=== PATIENT | male | born 1965 | race Caucasian/White ===

== ENCOUNTER 2019-01-16 10:42 | Inpatient (IN) | payer SELFPAY ==
[2019-01-16 10:51] LABS: Absolute Monocytes 0.6 K/uL (0.1-1.3); Absolute Neutrophil 4.4 K/uL (1.8-8.0); Basophils % 0.7 % (0-1.3); Eosinophils % 1.3 % (0-4.4); Hematocrit 44.1 % (39.6-49.0); Lymphocytes % 28.1 % (15.3-44.8); MPV 7.2 fL (7.6-11.3); Monocytes % 7.8 % (3.3-12.3); RBC Red Blood Cell Count 4.99 M/uL (4.33-5.43)
[2019-01-16 10:57] LABS: Protime INR 0.87
[2019-01-16] MEDS ORDERED: NA CHLORIDE 0.9% 500 ML ONE (11:02)
[2019-01-16 11:04] LABS: Potassium 4.1 mmol/L (3.5-5.1)
--- NOTE | 2019-01-16 11:07 | RAD REPORT ---
EXAM DESCRIPTION: CT - Ct Stroke Brain Wo Cont - 01/16/2019 10:56 am CLINICAL HISTORY: Aphasia COMPARISON: CT head September 2011 TECHNIQUE: Axial 5 millimeter thick images of the head were obtained without IV contrast. All CT scans are performed using dose optimization technique as appropriate and may include automated exposure control or mA/KV adjustment according to patient size. FINDINGS: No intracranial hemorrhage, mass, or cerebral edema. No acute cortical based infarction id entified. No cortical edema or sulcal effacement. No significant atrophy or chronic ischemic changes seen. There is some minimal cerebral white matter chronic ischemia suspected. Ventricles are in propo rtion to any volume loss. Rogers matter-white matter differentiation is preserved. No globe or orbital content abnormality seen. Visualized portions of the mastoid air cells, paranasal sinuses, and orbits are unremarkable. Findings telephoned to the referring physician 11:05 a.m. IMPRESSION: No CT evidence of acute intracranial process. MR imaging could be performed if there are ongoing concerns for acute CVA.
[2019-01-16 11:19] LABS: Creatine Phosphokinase 79 U/L (39-308); Troponin (Emerg Dept Use Only) < 0.02 ng/mL (0.0-0.045)
[2019-01-16] MEDS ORDERED: MAGNESIUM SULFATE 1 gm IVPB 1 GM/100 ML BAG IV ONE (11:23)
[2019-01-16] MEDS ORDERED: LORazepam 2 MG/ML VIAL ONE ×2 (11:23→12:14)
--- NOTE | 2019-01-16 11:42 | RAD REPORT ---
EXAM DESCRIPTION: RAD - Chest Single View - 01/16/2019 11:36 am CLINICAL HISTORY: discretion Chest pain. COMPARISON: Chest Single View dated 11/12/2017; Chest Pa And Lat (2 Views) dated 03/24/2016; Chest Sing le View dated 03/24/2016; CHEST SINGLE VIEW dated 11/07/2014 FINDINGS: Portable technique limits examination quality. The lungs are grossly clear. The heart is normal in size. No displaced fractures. IMPRESSION: No acute intrathoracic process suspected.
[2019-01-16] MEDS ORDERED: Calcium Gluconate 9.3 mEq (=2gm)/NS 100 mL IVPB IV ONE ×2 (11:45)
--- NOTE | 2019-01-16 12:52 | ER ---
Nurse's Notes [facility] Name: Tj Pearce Age: 53 yrs Sex: Male : 1965 Arrival Date: 01/16/2019 Time: 10:43 Bed 4 Private MD: Diagnosis: Aphasia;Hypocalcemia;Hypomagnesemia;Dehydration;Alcohol dependence with withdrawal, unspecified Presentation: 01/16 10:50 Presenting complaint: EMS states: CP x4 DAYS, STUTTERING AND POSTURING "EPISODES" SINCE bp 0430. Transition of care: patient was not received from another setting of care. No acute neurological deficit is noted. The patients blood glucose was checked before arriving to the hospital and was found to be normal. Onset of symptoms was January 16, 2019 at 04:30. Risk Assessment: Do you want to hurt yourself or someone else? Patient reports no desire to harm self or others. Initial Sepsis Screen: Does the patient meet any 2 criteria? HR > 90 bpm. Does the patient have a suspected source of infection? No. Patient's initial sepsis screen is negative. Care prior to arrival: IV initiated. 18 GA, in the left forearm, Glucose check: 153. 10:50 Method Of Arrival: EMS: [facility] bp 10:50 Acuity: SONDRA 1 bp Triage Assessment: 10:53 The onset of the patients symptoms was more than six hours ago. The onset of the bp patients symptoms was January 16, 2019 at 04:30. General: Appears distressed, comfortable, Behavior is cooperative, agitated, anxious. Pain: Complains of pain in chest Pain began 2-3 days ago. EENT: No deficits noted. Neuro: Level of Consciousness is awake, alert, obeys commands, Oriented to person, place, time, situation, Appropriate for age Street Railway Line Installer are equal bilaterally Moves all extremities. Full function Speech is normal, WITH EPISODES OF STUTTERING. Facial symmetry appears normal, Reports headache. Cardiovascular: Rhythm is sinus tachycardia. Respiratory: Airway is patent Respiratory effort is even, unlabored, Respiratory pattern is regular, symmetrical. GI: No signs and/or symptoms were reported involving the gastrointestinal system. : No signs and/or symptoms were reported regarding the genitourinary system. Derm: No deficits noted. Musculoskeletal: Circulation, motion, and sensation intact. Range of motion: intact in all extremities. Stroke Activation: Symptom onset > 6 hours Physician: Stroke Attending; Name: ; Notified At: ; Arrived At: Physician: Chief Stroke Resident; Name: ; Notified At: ; Arrived At: Physician: Stroke Resident; Name: ; Notified At: ; Arrived At: Physician: ED Attending; Name: ; Notified At: ; Arrived At: Physician: ED Resident; Name: ; Notified At: ; Arrived At: Historical: - Allergies: 10:53 Codeine; bp - Home Meds: 10:53 Lisinopril Oral [Active]; bp - PMHx: 10:53 Hypertension; High Cholesterol; CAD; Myocardial infarction; bp - Immunization history:: Adult Immunizations up to date. - Social history:: Smoking status: unknown. - Family history:: not pertinent. - Ebola Screening: : Patient negative for fever greater than or equal to 101.5 degrees Fahrenheit, and additional compatible Ebola Virus Disease symptoms Patient denies exposure to infectious person Patient denies travel to an Ebola-affected area in the 21 days before illness onset No symptoms or risks identified at this time. - Hospitalizations: : No recent hospitalization is reported. Screenin:51 Abuse screen: Denies threats or abuse. Denies injuries from another. Nutritional bp screening: No deficits noted. Tuberculosis screening: No symptoms or risk factors identified. Fall Risk None identified. Assessment: 10:51 VAN Scoring: Arm Drift: Patients demonstrates NO arm weakness. Patient is VAN Negative. bp The patient has not been NPO before screening. The patient is alert, and able to follow commands. The patient does not exhibit slurred or garbled speech. The patient is not exhibiting difficulty speaking. The patient does not exhibit difficulty understanding words. The patient is able to swallow own secretions with no drooling or need for suction. Patient tolerated one teaspoon of water. No drooling, immediate coughing, gurgling, or clearing of the throat was noted. The patient tolerated 90mL of water. No drooling, immediate coughing, gurgling, or clearing of the throat was noted. The patient passed the bedside swallow screening. Oral medications may be given as ordered. Contact Physician for further diet orders. Provider notified of bedside swallow screening results: Avel Munson MD. T-PA (Activase) Screening: Contraindications: Patient reports onset of signs and symptoms of stroke greater than 6 hours ago:. 10:58 Reassessment: PT RETURNED FROM CT. bp 11:47 Reassessment: Patient and/or family updated on plan of care and expected duration. Pain pc1 level reassessed. Patient is alert, oriented x 3, equal unlabored respirations, skin warm/dry/pink. Patient states symptoms have improved. Neuro: Level of Consciousness is awake, alert, obeys commands, Oriented to person, place, time, situation, Street Railway Line Installer are equal bilaterally Moves all extremities. Full function Speech is normal, Facial symmetry appears normal, Reports headache. 13:00 Reassessment: NO S/S SZ ACTIVITY, SR ON MONITOR, DISPO PENDING. bp 15:00 Reassessment: ADMIT COMPLETED. NO CHANGE IN NEURO STATUS. bp Vital Signs: 10:53 Pulse 110; Resp 17; Temp 99; Pulse Ox 100% ; Weight 82.1 kg; bp 11:06 BP 169 / 107; Pulse 81; Resp 16; Pulse Ox 97% ; bp 11:25 BP 161 / 80; Pulse 73; Resp 14; Pulse Ox 97% ; bp 11:41 BP 162 / 106; Pulse 84; Resp 18; Pulse Ox 97% on R/A; Pain 7/10; pc1 12:30 BP 172 / 99; Pulse 72; Resp 19; Pulse Ox 97% ; bp 14:00 BP 191 / 102; Pulse 76; Resp 19; Pulse Ox 97% ; bp 15:00 BP 179 / 90; Pulse 77; Resp 17; Pulse Ox 98% ; bp NIH Stroke Scale Scores: 10:51 NIHSS Score: 0 bp ED Course: 10:43 Patient arrived in ED. hj 10:47 Avel Munson MD is Attending Physician. rn 10:50 Jose Diaz RN is Primary Nurse. bp 10:51 Patient has correct armband on for positive identification. Placed in gown. Bed in low bp position. Call light in reach. Side rails up X2. 10:51 Maintain EMS IV. Dressing intact. Good blood return noted. Site clean \\T\\ dry. Gauge \\T\\ bp site: 18 GAUGE LEFT AC. Converted IV to saline lock on left antecubital area. 10:51 Inserted saline lock: 18 gauge in right forearm, using aseptic technique. bp 10:52 Triage completed. bp 10:53 Arm band placed on right wrist. bp 10:57 CT Stroke Brain w/o Contrast In Process Unspecified. EDMS 11:11 EKG done, by casting technician. reviewed by Avel Munson MD. at1 11:20 X-ray completed. Portable x-ray completed in exam room. Patient tolerated procedure jb2 well. 11:36 Stroke CXR 1 View In Process Unspecified. EDMS 12:50 Jun Gamez MD is Hospitalizing Provider. rn 15:44 No provider procedures requiring assistance completed. Patient admitted, IV remains in bp place. Administered Medications: 10:50 Drug: NS 0.9% 500 ml Route: IV; Rate: bolus; Site: right forearm; bp 15:07 Follow up: IV Status: Completed infusion bp 11:03 CANCELLED (Duplicate Order): Ativan 0.5 mg IVP once rn 11:10 Drug: Magnesium Sulfate 1 grams Route: IVPB; Infused Over: 1 hrs; Site: right forearm; bp 15:07 Follow up: IV Status: Completed infusion bp 11:10 Drug: Ativan 1 mg Route: IVP; Site: right forearm; bp 11:26 Follow up: Response: Marked relief of symptoms bp 12:00 Drug: Calcium Gluconate 2 grams Route: IVPB; Infused Over: 60 mins; Site: right forearm;bp 12:05 Drug: Ativan 1 mg Route: IVP; Site: left forearm; bp 13:01 Follow up: Response: No adverse reaction bp 13:30 Drug: Banana Bag - (NS 0.9% 1000 ml, foLIC Acid 1 mg, Thiamine 100 mg, Multivitamin 1 bp amp) Route: IV; Rate: calculated rate; Site: left forearm; Point of Care Testing: Blood Glucose: 10:53 Blood Glucose: 122 mg/dL; bp Ranges: Outcome: 12:51 Decision to Hospitalize by Provider. rn 15:57 Admitted to Tele accompanied by jeanne, via wheelchair, room 202, with chart, Report bp called to ARJUN LIND 15:57 Condition: stable 15:57 Instructed on the need for admit. 16:10 Patient left the ED. bp NIH Stroke Scale - NIH Stroke Score Date: 01/16/2019 Time: 10:51 Total Score = 0 1a. Level of Consciousness (LOC) - 0(Alert) 1b. Level of Consciousness (LOC) (Year \\T\\ Age) - 0(Both) 1c. LOC Commands (Open \\T\\ Closes Eyes/Filemaker Developer) - 0(Both) 2. Best Gaze (Lateral Gaze Paresis) - 0(Normal) 3. Visual Field Loss - 0(No visual loss) 4. Facial Palsy - 0(Normal) 5a. Left Arm: Motor (10-second hold) - 0(No drift) 5b. Right Arm: Motor (10-second hold) - 0(No drift) 6a. Left Leg: Motor (5-second hold - always test supine) - 0(No drift) 6b. Right Leg: Motor (5-second hold - always test supine) - 0(No drift) 7. Limb Ataxia (finger/nose \\T\\ heel/resendiz - test with eyes open) - 0(Absent) 8. Sensory Loss (pinprick arms/legs/face) - 0(Normal) 9. Best Language: Aphasia (description/naming/reading) - 0(No aphasia) 10. Dysarthria (speech clarity - read or repeat words) - 0(Normal) 11. Extinction and Inattention (visual/tactile/auditory/spatial/personal) - 0(No abnormality) Initials: bp Signatures: Dispatcher [employer] EDMS Dickson Packer jb2 Avel Munson MD MD rn Sima Rosales, line closer EKG Tat1 David Campos RN RN hj Jose Diaz, DIOGO RN bp Dale Osuna pc1 Corrections: (The following items were deleted from the chart) 11:25 10:51 Maintain EMS IV. Converted IV to saline lock on left antecubital area bp bp 11:25 10:51 Inserted saline lock: 18 gauge in right bp bp
--- NOTE | 2019-01-16 12:52 | EDPHYS ---
Physician Documentation [facility] Name: Tj Pearce Age: 53 yrs Sex: Male : 1965 Arrival Date: 01/16/2019 Time: 10:43 Bed 4 Private MD: ED Physician Avel Munson HPI: 01/16 10:48 This 53 yrs old Male presents to ER via Unassigned with complaints of S/S of rn Possible Stroke. 10:48 Reports headache for 1 week, chest pain for 3 days, and around 0430 noticed having rn short periods of unable to speak followed by spasms of upper extremities, when not having an episode, no focal weakness/numbness. Reports worst symptom is his headache. Denies trauma. Has had multiple MIs in past. Given nitro and aspirin by EMS. . Historical: - Allergies: 10:53 Codeine; bp - Home Meds: 10:53 Lisinopril Oral [Active]; bp - PMHx: 10:53 Hypertension; High Cholesterol; CAD; Myocardial infarction; bp - Immunization history:: Adult Immunizations up to date. - Social history:: Smoking status: unknown. - Family history:: not pertinent. - Ebola Screening: : Patient negative for fever greater than or equal to 101.5 degrees Fahrenheit, and additional compatible Ebola Virus Disease symptoms Patient denies exposure to infectious person Patient denies travel to an Ebola-affected area in the 21 days before illness onset No symptoms or risks identified at this time. - Hospitalizations: : No recent hospitalization is reported. ROS: 10:48 Constitutional: Negative for fever, chills, and weight loss, Eyes: Negative for injury, rn pain, redness, and discharge, Neck: Negative for injury, pain, and swelling, Cardiovascular: + chest pain Respiratory: Negative for shortness of breath, cough, wheezing, and pleuritic chest pain, Abdomen/GI: Negative for abdominal pain, nausea, vomiting, diarrhea, and constipation, MS/Extremity: Negative for injury and deformity, Skin: Negative for injury, rash, and discoloration, Neuro: + headache Exam: 10:48 Constitutional: This is a well developed, well nourished patient who is awake, alert, rn appears frustrated and having episodes of expressive ahpasia and tonic activity of RUE. Head/Face: Normocephalic, atraumatic. Eyes: Pupils equal round and reactive to light, extra-ocular motions intact. Lids and lashes normal. Conjunctiva and sclera are non-icteric and not injected. Cornea within normal limits. Periorbital areas with no swelling, redness, or edema. ENT: dry MM Cardiovascular: Tachycardic, irregular, no murmur Respiratory: Lungs have equal breath sounds bilaterally, clear to auscultation Abdomen/GI: soft, non-tender MS/ Extremity: Pulses equal, no cyanosis. Neurovascular intact. Full, normal range of motion. Equal circumference. Neuro: Awake and alert, GCS 15, oriented to person, place, time, and situation. Cranial nerves II-XII grossly intact. Motor strength 5/5 in all extremities. Sensory grossly intact. Few episodes lasting about 30 seconds of tonic upper extremity activity and aphasia, but outside of episodes, clear speech and moving all 4 extremities. Vital Signs: 10:53 Pulse 110; Resp 17; Temp 99; Pulse Ox 100% ; Weight 82.1 kg; bp 11:06 BP 169 / 107; Pulse 81; Resp 16; Pulse Ox 97% ; bp 11:25 BP 161 / 80; Pulse 73; Resp 14; Pulse Ox 97% ; bp 11:41 BP 162 / 106; Pulse 84; Resp 18; Pulse Ox 97% on R/A; Pain 7/10; pc1 12:30 BP 172 / 99; Pulse 72; Resp 19; Pulse Ox 97% ; bp 14:00 BP 191 / 102; Pulse 76; Resp 19; Pulse Ox 97% ; bp 15:00 BP 179 / 90; Pulse 77; Resp 17; Pulse Ox 98% ; bp NIH Stroke Scale Scores: 10:51 NIHSS Score: 0 bp MDM: 10:47 Patient medically screened. rn 11:03 ED course: CT head no acute findings per radiology. rn 11:03 ED course: Pt states alcoholic, and hasn't been eating much, only ramen noodles, last rn drink last night.. 11:53 ED course: Symptoms have improved, given fluids/ativan/mag/calcium, trop negative, rn likely component of abnormal electrolytes 2/2 alcoholism and relative early ETOH withdrawal. . 12:49 Differential diagnosis: CVA, TIA, metabolic disorder, ETOH withdrawal. Data reviewed: rn vital signs, nurses notes, lab test result(s), EKG, radiologic studies, CT scan, plain films, and as a result, I will admit patient. Counseling: I had a detailed discussion with the patient and/or guardian regarding: the historical points, exam findings, and any diagnostic results supporting the discharge/admit diagnosis, lab results, radiology results, the need for further work-up and treatment in the hospital. Response to treatment: the patient's symptoms have markedly improved after treatment, and as a result, I will discharge patient. 12:49 ED course: Pt back to baseline. Admitted to Dr. Gamez, spoke with her \T\ 1250.. rn 01/16 10:45 Order name: Basic Metabolic Panel; Complete Time: :01/16 10:45 Order name: CBC with Diff; Complete Time: :01/16 10:45 Order name: Protime (+inr); Complete Time: :01/16 10:45 Order name: Ptt, Activated; Complete Time: :01/16 10:48 Order name: Troponin (emerg Dept Use Only); Complete Time: :01/16 10:48 Order name: Magnesium; Complete Time: 01/16 10:45 Order name: CT Stroke Brain w/o Contrast; Complete Time: :01/16 10:45 Order name: Stroke CXR 1 View; Complete Time: :01/16 10:48 Order name: CK; Complete Time: :01/16 10:54 Order name: Lipase; Complete Time: :01/16 11:00 Order name: ETOH Level; Complete Time: 11:01/16 10:45 Order name: EKG; Complete Time: 10:46 01/16 10:45 Order name: Accucheck; Complete Time: 11:01/16 10:45 Order name: Cardiac monitoring; Complete Time: 10:45 01/16 10:45 Order name: EKG - Nurse/Tech; Complete Time: 11:01/16 10:45 Order name: IV Saline Lock; Complete Time: 11:01/16 10:45 Order name: Labs collected and sent; Complete Time: 10:45 01/16 10:45 Order name: NPO; Complete Time: 11:/12 10:45 Order name: O2 Per Protocol; Complete Time: 10:45 01/16 10:45 Order name: O2 Sat Monitoring; Complete Time: 10:45 01/16 10:45 Order name: Stroke Swallow Screen; Complete Time: 11:10 aa5 Administered Medications: 10:50 Drug: NS 0.9% 500 ml Route: IV; Rate: bolus; Site: right forearm; bp 15:07 Follow up: IV Status: Completed infusion bp 11:03 CANCELLED (Duplicate Order): Ativan 0.5 mg IVP once rn 11:10 Drug: Magnesium Sulfate 1 grams Route: IVPB; Infused Over: 1 hrs; Site: right forearm; bp 15:07 Follow up: IV Status: Completed infusion bp 11:10 Drug: Ativan 1 mg Route: IVP; Site: right forearm; bp 11:26 Follow up: Response: Marked relief of symptoms bp 12:00 Drug: Calcium Gluconate 2 grams Route: IVPB; Infused Over: 60 mins; Site: right forearm;bp 12:05 Drug: Ativan 1 mg Route: IVP; Site: left forearm; bp 13:01 Follow up: Response: No adverse reaction bp 13:30 Drug: Banana Bag - (NS 0.9% 1000 ml, foLIC Acid 1 mg, Thiamine 100 mg, Multivitamin 1 bp amp) Route: IV; Rate: calculated rate; Site: left forearm; Point of Care Testing: Blood Glucose: 10:53 Blood Glucose: 122 mg/dL; bp Ranges: Critical Glucose Levels:Adult <50 mg/dl or >400 mg/dl <40 mg/dl or >180 mg/dl Disposition: 01/16/19 12:51 Hospitalization ordered by Jun Gamez for Observation. Preliminary diagnosis are Aphasia, Hypocalcemia, Hypomagnesemia, Dehydration, Alcohol dependence with withdrawal, unspecified. - Bed requested for Telemetry/MedSurg (observation). - Status is Observation. bp - Condition is Stable. - Problem is new. - Symptoms have improved. UTI on Admission? No NIH Stroke Scale - NIH Stroke Score Date: 01/16/2019 Time: 10:51 Total Score = 0 1a. Level of Consciousness (LOC) - 0(Alert) 1b. Level of Consciousness (LOC) (Year \T\ Age) - 0(Both) 1c. LOC Commands (Open \T\ Closes Eyes/Geospatial Applications Developer) - 0(Both) 2. Best Gaze (Lateral Gaze Paresis) - 0(Normal) 3. Visual Field Loss - 0(No visual loss) 4. Facial Palsy - 0(Normal) 5a. Left Arm: Motor (10-second hold) - 0(No drift) 5b. Right Arm: Motor (10-second hold) - 0(No drift) 6a. Left Leg: Motor (5-second hold - always test supine) - 0(No drift) 6b. Right Leg: Motor (5-second hold - always test supine) - 0(No drift) 7. Limb Ataxia (finger/nose \T\ heel/resendiz - test with eyes open) - 0(Absent) 8. Sensory Loss (pinprick arms/legs/face) - 0(Normal) 9. Best Language: Aphasia (description/naming/reading) - 0(No aphasia) 10. Dysarthria (speech clarity - read or repeat words) - 0(Normal) 11. Extinction and Inattention (visual/tactile/auditory/spatial/personal) - 0(No abnormality) Initials: bp Signatures: Dispatcher [employer] EDMS Avel Munson MD MD rn Calderon, Audri, RN RN aa5 Philomena Hester RN RN df Jose Diaz RN RN bp Corrections: (The following items were deleted from the chart) 11:03 10:54 Ativan 0.5 mg IVP once ordered. rn rn 14:55 12:51 Hospitalization Ordered by Jun Gamez MD for Observation. Preliminary df diagnosis is Aphasia; Hypocalcemia; Hypomagnesemia; Dehydration; Alcohol dependence with withdrawal, unspecified. Bed requested for Telemetry/MedSurg (observation). Status is Observation. Condition is Stable. Problem is new. Symptoms have improved. UTI on Admission? No. rn 16:10 14:55 01/16/2019 12:51 Hospitalization Ordered by Jun Gamez MD for bp Observation. Preliminary diagnosis is Aphasia; Hypocalcemia; Hypomagnesemia; Dehydration; Alcohol dependence with withdrawal, unspecified. Bed requested for Telemetry/MedSurg (observation). Status is Observation. Condition is Stable. Problem is new. Symptoms have improved. UTI on Admission? No. df
[2019-01-16] MEDS ORDERED: FOLIC ACID 1 MG, MULTIVITAMINS INJ 10 ML, THIAMINE HCL 100 MG in NA CHLORIDE 0.9% 1,000 ML IV ONE (14:00)
[2019-01-16] MEDS ORDERED: LORazepam 2 MG/ML VIAL IV PRN (16:04)
[2019-01-16] MEDS: NA CHLORIDE 0.9% 1,000 ML IV SCH ×2 (16:04→20:49)
[2019-01-16 17:37] VITALS: BMI 25.1
--- NOTE | 2019-01-16 18:44 | P.HP ---
Certification for Inpatient Patient admitted to: Observation With expected LOS: <2 Midnights Practitioner: I am a practitioner with admitting privileges, knowledge of patient current condition, hospital course, and medical plan of care. Services: Services provided to patient in accordance with Admission requirements found in Title 42 Section 412.3 of the Code of Federal Regulations Patient History Date of Service: 01/16/19 Reason for admission: Aphasia History of Present Illness: This is a 53-year-old male with a history of hypertension, myocardial infarction , 2 stent placements, heavy alcohol usage, heavy smoking, marijuana usage admitted for chest pain that started on the left side at 4:30 a.m. the morning of admission. He describes it as a cramping type of pain but states that this pain felt different from his myocardial infarctions in the past. He denies any radiation, alleviating or exacerbating factors. Stated that resolved in the ER. This pain was associated with a headache, trouble speaking and making decisions. He also endorsed some vision changes, stated that the risks of bleeding out of the light. These symptoms also resolved in the ER. In the ED, his blood pressure was elevated to 170/92. His blood work was unremarkable, physical exam was unremarkable. Chest x-ray was normal and a CT head was negative for any acute abnormalities. In the ER, he received 2 mg of Ativan x2 , Mag sulf, normal saline bolus, calcium gluconate. At the time of my exam, patient was alert oriented x3, in no acute distress and was hemodynamically stable. He was asymptomatic and denied any symptoms that he previously had. Per patient, he is a every day 5 L of wine alcohol drinker for a long time. Last drink was yesterday. He also endorses smoking 1 pack of cigarettes a day for the past 10+ years. He also states that he uses marijuana daily, though his last use was 3 weeks ago. Allergies codeine [Codeine] Allergy (Verified 03/24/16 12:22) Hives/Rash Home Medications: Lisinopril [Prinivil*] 20 mg PO DAILY 01/16/19 - Past Medical/Surgical History Diabetic: No -: HTN -: Prior myocardial infarction -: skin graft to head - Family History Father Notes: unknown Mother -: Lung disease, Cancer - Social History Smoking Status: Current every day smoker Alcohol use: Yes CD- Drugs: Yes Caffeine use: Yes Review of Systems 10-point ROS is otherwise unremarkable Physical Examination - Vital Signs Temperature: 98.1 F Blood Pressure: 178/100 Pulse: 71 Respirations: 16 Pulse Ox (%): 96 - Physical Exam General: Alert, In no apparent distress, Oriented x3 HEENT: Atraumatic, PERRLA, Mucous membr. moist/pink, EOMI, Sclerae nonicteric Neck: Supple, 2+ carotid pulse no bruit, No LAD, Without JVD or thyroid abnormality Respiratory: Clear to auscultation bilaterally, Normal air movement Cardiovascular: Regular rate/rhythm, Normal S1 S2 Gastrointestinal: Normal bowel sounds, No tenderness Musculoskeletal: No tenderness Integumentary: No rashes Neurological: Normal gait, Normal speech, Normal strength at 5/5 x4 extr, Normal tone, Normal affect Lymphatics: No axilla or inguinal lymphadenopathy - Studies Laboratory Data (last 24 hrs) 01/16/19 10:44: Magnesium 2.0 01/16/19 10:44: PT 10.3, INR 0.87, APTT 27.4 01/16/19 10:44: WBC 7.1, Hgb 15.0, Hct 44.1, Plt Count 361 01/16/19 10:44: Sodium 142, Potassium 4.1, BUN 8, Creatinine 1.00, Glucose 143 H Assessment and Plan - Problems (Diagnosis) (1) Hypocalcemia Current Visit: Yes Status: Acute (2) Dehydration Current Visit: Yes Status: Acute (3) Aphasia Current Visit: Yes Status: Acute (4) Nicotine dependence Current Visit: Yes Status: Acute (5) Marijuana user Current Visit: Yes Status: Acute (6) Alcohol abuse Current Visit: No Status: Acute (7) CAD (coronary artery disease) Current Visit: No Status: Acute (8) Chest pain Onset Date: 03/25/16 Current Visit: No Status: Acute (9) Hypomagnesemia Onset Date: 03/25/16 Current Visit: No Status: Acute (10) Stented coronary artery Current Visit: No Status: Acute (11) Hypertension Onset Date: 03/25/16 Current Visit: No Status: Chronic Qualifiers: Hypertension type: essential hypertension Qualified Code(s): I10 - Essential (primary) hypertension - Plan This is a 53-year-old male with: Chest pain Resolved at the time of my exam. Will continue to monitor Aphasia Tet[place] Resolved. CT scan negative for any acute abnormalities. Title diagnosis includes alcohol withdrawal versus TIA versus stroke. If symptoms return or worsen, will continue to get MRI. At this time, patient back to baseline. Will continue to monitor Alcohol dependence with withdrawal Alcohol withdrawal assessments. Ativan as needed Librium Multivitamin daily Counseled on proper alcohol cessation. Does not seem that patient is interested in cessation at this time. Hypocalcemia Hypomagnesemia Dehydration Replete lytes per protocol Monitor via a.m. labs Nicotine dependence Counseled on smoking cessation. Patient not interested in smoking cessation at this time. marijuana user Essential hypertension Will resume home medications as tolerated DVT prophylaxis: Lovenox GI prophylaxis: None Diet: Heart healthy Disposition: Pending symptomatic improvement. Likely discharge next 24-48 hr if remains clinically stable. - Advance Directives Does patient have a Living Will: No Does patient have a Durable POA for Healthcare: No Time Spent Managing Pts Care (In Minutes): 55
[2019-01-16] MEDS: ENOXAPARIN 40 MG/0.4 ML SQ SCH (18:45)
[2019-01-16] MEDS: chlordiazePOXIDE HCl 25 MG CAP PO SCH ×2 (18:45→23:17)
[2019-01-16] MEDS: METOPROLOL TAR 25 MG TAB PO SCH (20:50)
[2019-01-17] MEDS: METOPROLOL TAR 25 MG TAB PO SCH ×2 (05:13→17:01)
[2019-01-17] MEDS: chlordiazePOXIDE HCl 25 MG CAP PO SCH ×3 (05:13→17:00)
[2019-01-17 05:41] LABS: Absolute Lymphocytes (CBC) 1.3 K/uL (0.7-4.9); Absolute Monocytes 0.8 K/uL (0.1-1.3); Absolute Neutrophil 3.7 K/uL (1.8-8.0); Basophils % 0.7 % (0-1.3); Eosinophils % 1.1 % (0-4.4); Hematocrit 42.5 % (39.6-49.0); MPV 7.8 fL (7.6-11.3); Monocytes % 13.1 % (3.3-12.3); RBC Red Blood Cell Count 4.72 M/uL (4.33-5.43)
[2019-01-17 06:04] LABS: Albumin 3.5 g/dL (3.4-5.0); Bilirubin Total 0.7 mg/dL (0.2-1.0); Phosphorus 3.1 mg/dL (2.5-4.9); Potassium 4.1 mmol/L (3.5-5.1); Protein, Total 6.8 g/dL (6.4-8.2)
[2019-01-17] MEDS: ENOXAPARIN 40 MG/0.4 ML SQ SCH (08:58)
[2019-01-17] MEDS: LISINOPRIL 20 MG TAB PO SCH (08:58)
[2019-01-17] MEDS: THIAMINE HCL 100 MG TABLET PO SCH (08:59)
[2019-01-17] MEDS: FOLBIC 1 TAB PO SCH (09:00)
[2019-01-17] MEDS: NA CHLORIDE 0.9% 1,000 ML IV SCH ×2 (12:13→20:48)
[2019-01-17] MEDS: NICOTINE 21 MG/PAT TD SCH (13:49)
[2019-01-17] MEDS: AMLODIPINE 5 MG TAB PO SCH (17:30)
--- NOTE | 2019-01-17 18:39 | P.PN ---
Subjective Date of Service: 01/17/19 Chief Complaint: Aphasia Subjective: Improving Patient seen and examined at bedside. No family at bedside. Chart reviewed and case discussed with nursing staff. Review of Systems 10-point ROS is otherwise unremarkable Physical Examination - Vital Signs Temperature: 98.3 F Blood Pressure: 170/90 Pulse: 94 Respirations: 20 Pulse Ox (%): 96 - Physical Exam General: Alert, In no apparent distress, Oriented x3 HEENT: Atraumatic, PERRLA, EOMI Neck: Supple, JVD not distended Respiratory: Clear to auscultation bilaterally, Normal air movement Cardiovascular: Regular rate/rhythm, Normal S1 S2 Gastrointestinal: Normal bowel sounds, No tenderness Musculoskeletal: No tenderness Integumentary: No rashes Neurological: Normal speech, Normal tone, Normal affect Lymphatics: No axilla or inguinal lymphadenopathy Assessment And Plan - Current Problems (Diagnosis) (1) Hypocalcemia Current Visit: Yes Status: Acute (2) Dehydration Current Visit: Yes Status: Acute (3) Aphasia Current Visit: Yes Status: Acute (4) Nicotine dependence Current Visit: Yes Status: Acute (5) Marijuana user Current Visit: Yes Status: Acute (6) Alcohol abuse Current Visit: No Status: Acute (7) CAD (coronary artery disease) Current Visit: No Status: Acute (8) Chest pain Onset Date: 03/25/16 Current Visit: No Status: Acute (9) Hypomagnesemia Onset Date: 03/25/16 Current Visit: No Status: Acute (10) Stented coronary artery Current Visit: No Status: Acute (11) Hypertension Onset Date: 03/25/16 Current Visit: No Status: Chronic Qualifiers: Hypertension type: essential hypertension Qualified Code(s): I10 - Essential (primary) hypertension - Plan This is a 53-year-old male with: Chest pain Had some episodes of chest pain overnight. Troponins negative x2, EKG without any acute abnormalities. Ordered PPI to see if that would help symptoms. Pain does not seem cardiac-related. Will continue to monitor Aphasia Tetany Resolved. No further episodes while in the hospital. CT scan negative for any acute abnormalities. Title diagnosis includes alcohol withdrawal versus TIA versus stroke. If symptoms return or worsen, will continue to get MRI. At this time, patient back to baseline. Will continue to monitor Alcohol dependence with withdrawal Alcohol withdrawal assessments. Monitor for withdrawal symptoms Ativan as needed Librium Multivitamin daily Counseled on proper alcohol cessation. Does not seem that patient is interested in cessation at this time. Hypocalcemia Hypomagnesemia Dehydration Improving Replete lytes per protocol Monitor via a.m. labs Nicotine dependence Counseled on smoking cessation. Patient not interested in smoking cessation at this time. marijuana user Essential hypertension Blood pressure is elevated. Restarted lisinopril 20 mg. Added metoprolol 25 b.i.d.. Blood pressure still continues to be elevated. Added Norvasc 5, will continue to monitor and make adjustments as needed. DVT prophylaxis: Lovenox GI prophylaxis: None Diet: Heart healthy Disposition: Pending symptomatic improvement. Likely discharge next 24-48 hr if remains clinically stable.
[2019-01-18] MEDS: chlordiazePOXIDE HCl 25 MG CAP PO SCH ×4 (00:09→17:12)
[2019-01-18] MEDS: METOPROLOL TAR 25 MG TAB PO SCH ×2 (05:09→17:12)
[2019-01-18] MEDS: PANTOPRAZOLE 40MG TABLET PO SCH (05:10)
[2019-01-18] MEDS: ENOXAPARIN 40 MG/0.4 ML SQ SCH (09:32)
[2019-01-18] MEDS: FOLBIC 1 TAB PO SCH (09:32)
[2019-01-18] MEDS: LISINOPRIL 20 MG TAB PO SCH (09:33)
[2019-01-18] MEDS: AMLODIPINE 5 MG TAB PO SCH (09:33)
[2019-01-18] MEDS: NICOTINE 21 MG/PAT TD SCH (09:34)
[2019-01-18] MEDS: THIAMINE HCL 100 MG TABLET PO SCH (09:34)
[2019-01-18] MEDS: NA CHLORIDE 0.9% 1,000 ML IV SCH ×2 (09:35→17:13)
--- NOTE | 2019-01-18 10:26 | EKG ---
Test Date: 2019-01-16 Test Time: 10:43:48 Pediatric Rn: TERESE MEASUREMENT RESULTS: Intervals: Rate: 101 OH: 158 QRSD: 78 QT: 336 QTc: 435 [place]: P: 66 OH: 158 QRS: 45 T: 79 INTERPRETIVE STATEMENTS: Sinus tachycardia with premature ventricular complexes Otherwise normal ECG Compared to ECG 11/12/2017 01:42:40 PVC now presentt Myocardial infarct finding no longer present Electronically Signed On 01-16-19 12:37:48 CDT by Oswaldo Anglin
--- NOTE | 2019-01-18 10:30 | EKG ---
Test Date: 2019-01-16 Test Time: 17:44:15 Gut Puller: SANDER MEASUREMENT RESULTS: Intervals: Rate: 97 CO: 144 QRSD: 86 QT: 350 QTc: 444 [place]: P: 62 CO: 144 QRS: 35 T: 67 INTERPRETIVE STATEMENTS: Normal sinus rhythm Normal ECG Compared to ECG 01/16/2019 10:43:48 Sinus tachycardia no longer present Ventricular premature complex(es) no longer present Electronically Signed On 01-17-19 08:09:12 CDT by Oswaldo Anglin
--- NOTE | 2019-01-18 12:26 | ECHO ---
HEIGHT: 5 ft 11 in WEIGHT: 180 lb 0 oz DATE OF STUDY: 01/18/[address]: Jun Gamez MD 2-DIMENSIONAL: YES M.MODE: YES DOPPLER: YES COLOR FLOW: YES TDS: NO PORTABLE: NO DEFINITY: NO BUBBLE STUDY: NO DIAGNOSIS: CHEST PAIN CARDIAC HISTORY: CATHERIZATION: NO SURGERY: NO PROSTHETIC VALVE: NO PACEMAKER: NO MEASUREMENTS (cm) DIASTOLIC (NORMALS) SYSTOLIC (NORMALS) IVSd 1.0 (0.6-1.2) LA Diam (1.9-4.0) LVEF 60-69% LVIDd 4.9 (3.5-5.7) LVIDs 3.3 (2.0-3.5) %FS % LVPWd 1.0 (0.6-1.2) Ao Diam 2.9 (2.0-3.7) 2 DIMENSIONAL ASSESSMENT: RIGHT ATRIUM: NORMAL LEFT ATRIUM: NORMAL RIGHT VENTRICLE: NORMAL LEFT VENTRICLE: NORMAL TRICUSPID VALVE: NORMAL MITRAL VALVE: NORMAL PULMONIC VALVE: NORMAL AORTIC VALVE: NORMAL PERICARDIAL EFFUSION: NONE AORTIC ROOT: NORMAL LEFT VENTRICULAR WALL MOTION: NORMAL. DOPPLER/COLOR FLOW: NORMAL. COMMENTS: NORMAL 2D ECHO WITH DOPPLER. TECHNOLOGIST: HARLEY KIMBROUGH
--- NOTE | 2019-01-18 14:18 | P.PN ---
Subjective Date of Service: 01/18/19 Chief Complaint: Aphasia Subjective: Improving Patient seen and examined at bedside. No family at bedside. Chart reviewed and case discussed with nursing staff. Overnight, patient noted to have tremors. Complained of ROSEN At the time of my exam in am, tremors resolved. ROSEN improved. BP still elevated. Last BP in system noted to be recorded prior to BP medication administration. Chest pain resolved this am. Review of Systems 10-point ROS is otherwise unremarkable Physical Examination - Vital Signs Temperature: 97.2 F Blood Pressure: 172/90 Pulse: 58 Respirations: 18 Pulse Ox (%): 97 - Physical Exam General: Alert, In no apparent distress, Oriented x3 HEENT: Atraumatic, PERRLA, EOMI Neck: Supple, JVD not distended Respiratory: Clear to auscultation bilaterally, Normal air movement Cardiovascular: Regular rate/rhythm, Normal S1 S2 Gastrointestinal: Normal bowel sounds, No tenderness Musculoskeletal: No tenderness Integumentary: No rashes Neurological: Normal speech, Normal tone, Normal affect Lymphatics: No axilla or inguinal lymphadenopathy Assessment And Plan - Current Problems (Diagnosis) (1) Hypocalcemia Current Visit: Yes Status: Resolved (2) Dehydration Current Visit: Yes Status: Resolved (3) Aphasia Current Visit: Yes Status: Resolved (4) Nicotine dependence Current Visit: Yes Status: Chronic Qualifiers: Nicotine product type: cigarettes Substance use status: uncomplicated Qualified Code(s): F17.210 - Nicotine dependence, cigarettes, uncomplicated (5) Marijuana user Current Visit: Yes Status: Chronic (6) Alcohol abuse Current Visit: No Status: Chronic (7) CAD (coronary artery disease) Current Visit: No Status: Acute Qualifiers: Coronary Disease-Associated Artery/Lesion type: [place] artery [place] vs. transplanted heart: ch[place]koot heart Associated angina: without angina Qualified Code(s): I25.10 - Atherosclerotic heart disease of [place] coronary artery without angina pectoris (8) Chest pain Onset Date: 03/25/16 Current Visit: No Status: Acute (9) Hypomagnesemia Onset Date: 03/25/16 Current Visit: No Status: Acute (10) Stented coronary artery Current Visit: No Status: Acute (11) Hypertension Onset Date: 03/25/16 Current Visit: No Status: Chronic Qualifiers: Hypertension type: essential hypertension Qualified Code(s): I10 - Essential (primary) hypertension - Plan This is a 53-year-old male with: Chest pain Had some episodes of chest pain overnight. Troponins negative x2, EKG without any acute abnormalities. Resolved this am. Will continue to monitor Aphasia Tetany Resolved. No further episodes while in the hospital. CT scan negative for any acute abnormalities. Differential diagnosis includes alcohol withdrawal versus TIA versus stroke. If symptoms return or worsen, will proceed to get MRI. At this time, patient back to baseline. Will continue to monitor Alcohol dependence with withdrawal Seems to had some tremors of the hand overnight which resolved by morning. Alcohol withdrawal assessments. Monitor for withdrawal symptoms Ativan as needed Librium scheduled Multivitamin daily Counseled on proper alcohol cessation. Does not seem that patient is interested in cessation at this time. Hypocalcemia Hypomagnesemia Dehydration Improving Replete lytes per protocol Monitor via a.m. labs Nicotine dependence Counseled on smoking cessation. Patient not interested in smoking cessation at this time. marijuana user Essential hypertension Blood pressure is elevated. Restarted lisinopril 20 mg. Added metoprolol 25 b.i.d.. Blood pressure still continues to be elevated. We will increase norvasc to 10 mg daily, will continue to monitor and make adjustments as needed. DVT prophylaxis: Lovenox GI prophylaxis: None Diet: Heart healthy Disposition: Pending symptomatic improvement. Likely discharge next 24-48 hr if remains clinically stable.
[2019-01-18] MEDS ORDERED: AMLODIPINE 5 MG TAB PO ONE (14:20)
--- NOTE | 2019-01-18 14:23 | P.PN ---
Date of Service: 01/18/19 2:10 p.m: I called charge nurse for updated vitals. BP noted to be 184/88. Will go ahead and increase norvasc to 10 mg. Instructed charge nurse to give 1 time 5 mg dosage now (ordered) and start 10 mg daily starting tomorrow am. Continue to monitor blood pressure.
[2019-01-19] MEDS: chlordiazePOXIDE HCl 25 MG CAP PO SCH ×2 (00:13→06:08)
[2019-01-19] MEDS: METOPROLOL TAR 25 MG TAB PO SCH (06:08)
[2019-01-19] MEDS: PANTOPRAZOLE 40MG TABLET PO SCH (06:09)
[2019-01-19] MEDS: NA CHLORIDE 0.9% 1,000 ML IV SCH (06:12)
[2019-01-19] MEDS: ENOXAPARIN 40 MG/0.4 ML SQ SCH (08:53)
[2019-01-19] MEDS: FOLBIC 1 TAB PO SCH (08:54)
[2019-01-19] MEDS: LISINOPRIL 20 MG TAB PO SCH (08:55)
[2019-01-19] MEDS: NICOTINE 21 MG/PAT TD SCH (08:56)
[2019-01-19] MEDS: THIAMINE HCL 100 MG TABLET PO SCH (08:57)
[2019-01-19] MEDS ORDERED: AMLODIPINE 10 MG TAB PO SCH (09:00)
[2019-01-19 12:11] VITALS: BP 136/80; TEMP 97.9
[2019-01-19 12:43] VITALS: O2SAT 97
--- NOTE | 2019-01-19 18:58 | P.DS ---
Admission Date: 01/16/19 Discharge Date: 01/19/19 Disposition: ROUTINE DISCHARGE Discharge Condition: GOOD Reason for Admission: Aphasia - Problems (1) Hypocalcemia Status: Resolved (2) Dehydration Status: Resolved (3) Aphasia Status: Resolved (4) Nicotine dependence Status: Chronic Qualifiers: Nicotine product type: cigarettes Substance use status: uncomplicated Qualified Code(s): F17.210 - Nicotine dependence, cigarettes, uncomplicated (5) Marijuana user Status: Chronic (6) Alcohol abuse Status: Chronic (7) CAD (coronary artery disease) Status: Acute Qualifiers: Coronary Disease-Associated Artery/Lesion type: circle artery [place] vs. transplanted heart: circle heart Associated angina: without angina Qualified Code(s): I25.10 - Atherosclerotic heart disease of circle coronary artery without angina pectoris (8) Chest pain Onset Date: 03/25/16 Status: Acute (9) Hypomagnesemia Onset Date: 03/25/16 Status: Acute (10) Stented coronary artery Status: Acute (11) Hypertension Onset Date: 03/25/16 Status: Chronic Qualifiers: Hypertension type: essential hypertension Qualified Code(s): I10 - Essential (primary) hypertension Brief History of Present Illness: This is a 53-year-old male with a history of hypertension, myocardial infarction , 2 stent placements, heavy alcohol usage, heavy smoking, marijuana usage admitted for chest pain that started on the left side at 4:30 a.m. the morning of admission. He describes it as a cramping type of pain but states that this pain felt different from his myocardial infarctions in the past. He denies any radiation, alleviating or exacerbating factors. Stated that resolved in the ER. This pain was associated with a headache, trouble speaking and making decisions. He also endorsed some vision changes, stated that the risks of bleeding out of the light. These symptoms also resolved in the ER. In the ED, his blood pressure was elevated to 170/92. His blood work was unremarkable, physical exam was unremarkable. Chest x-ray was normal and a CT head was negative for any acute abnormalities. In the ER, he received 2 mg of Ativan x2 , Mag sulf, normal saline bolus, calcium gluconate. At the time of my exam, patient was alert oriented x3, in no acute distress and was hemodynamically stable. He was asymptomatic and denied any symptoms that he previously had. Per patient, he is a every day 5 L of wine alcohol drinker for a long time. Last drink was yesterday. He also endorses smoking 1 pack of cigarettes a day for the past 10+ years. He also states that he uses marijuana daily, though his last use was 3 weeks ago. Hospital Course: Chest pain Overall remained stable. Troponins remained negative x2, EKG without any abnormalities. His chest pain did resolve without any intervention. Aphasia Tetany Resolved. No further episodes while in the hospital. CT scan negative for any acute abnormalities. Differential diagnosis included alcohol withdrawal versus TIA versus stroke. Patient remained at baseline throughout the stay. Alcohol dependence with withdrawal No evidence of withdrawals noted throughout the stay. Ativan as needed ordered though not required throughout the stay. Librium scheduled while in the hospital. Did not discharge patient on Librium as patient stated that he is not interested in alcohol cessation at this time. Hypocalcemia Hypomagnesemia Dehydration Repleted per protocol, resolved Nicotine dependence Counseled on smoking cessation. Patient not interested in smoking cessation at this time. marijuana user Patient not interested in cessation at this time. States that he only does it occasionally anyway. But then did change his mind and said that he does do it daily, though has not done and in over 3 weeks. Essential hypertension Blood pressure is elevated. Restarted lisinopril 20 mg. Added metoprolol 25 b.i.d.. Blood pressure still continued to be elevated. We will increase norvasc to 10 mg daily. Blood pressure seems to be stable on this regimen. Discharged on metoprolol 25 mg b.i.d., lisinopril 20 mg and Norvasc 10 mg daily. Instructed to follow up with the primary care physician in 2-3 days for. further management of blood pressure. Prior to discharge, patient was alert oriented x3, asymptomatic and symptom- free and in no acute distress. He was tolerating a regular diet, is ambulating without any concerns. No evidence of alcohol withdrawal symptoms noted at this time. Hemodynamically stable and blood pressure better controlled. Vital Signs/Physical Exam: Temp Pulse Resp BP Pulse Ox 97.9 F 67 16 136/80 98 01/19/19 12:00 01/19/19 12:00 01/19/19 12:00 01/19/19 12:00 01/19/19 12:00 General: Alert, In no apparent distress, Oriented x3 HEENT: Atraumatic, PERRLA, EOMI Neck: Supple, JVD not distended Respiratory: Clear to auscultation bilaterally, Normal air movement Cardiovascular: Regular rate/rhythm, Normal S1 S2 Gastrointestinal: Normal bowel sounds, No tenderness Musculoskeletal: No tenderness Integumentary: No rashes Neurological: Normal speech, Normal tone, Normal affect Lymphatics: No axilla or inguinal lymphadenopathy Laboratory Data at Discharge: WBC 5.9 K/uL (4.3-10.9) D 01/17/19 05:10 Hgb 14.1 g/dL (13.6-17.9) 01/17/19 05:10 Hct 42.5 % (39.6-49.0) 01/17/19 05:10 Plt Count 216 K/uL (152-406) D 01/17/19 05:10 PT 10.3 SECONDS (9.5-12.5) 01/16/19 10:44 INR 0.87 01/16/19 10:44 APTT 27.4 SECONDS (24.3-36.9) 01/16/19 10:44 Sodium 137 mmol/L (136-145) 01/17/19 05:10 Potassium 4.1 mmol/L (3.5-5.1) 01/17/19 05:10 BUN 13 mg/dL (7-18) 01/17/19 05:10 Creatinine 1.22 mg/dL (0.55-1.3) 01/17/19 05:10 Glucose 133 mg/dL (74-106) H 01/17/19 05:10 Phosphorus 3.1 mg/dL (2.5-4.9) 01/17/19 05:10 Magnesium 2.0 mg/dL (1.8-2.4) 01/16/19 10:44 Total Bilirubin 0.7 mg/dL (0.2-1.0) 01/17/19 05:10 AST 43 U/L (15-37) H 01/17/19 05:10 ALT 44 U/L (12-78) 01/17/19 05:10 Alkaline Phosphatase 111 U/L (45-117) 01/17/19 05:10 Troponin I < 0.02 ng/mL (0.0-0.045) 01/16/19 18:45 Lipase 46 U/L (73-393) L 01/16/19 Unknown Home Medications: Lisinopril [Prinivil*] 20 mg PO DAILY 01/16/19 Amlodipine [Norvasc*] 10 mg PO DAILY #30 tab 01/19/19 Cyanoco/FA/Pyri [Folbic*] 1 tab PO DAILY #30 tab 01/19/19 Metoprolol Tartrate [Lopressor*] 25 mg PO BID 6AM 6PM #60 tab 01/19/19 Pantoprazole [Protonix Tab*] 40 mg PO DAILYAC #30 tab 01/19/19 Thiamine HCl [Vitamin B-1*] 100 mg PO DAILY #30 tablet 01/19/19 New Medications: Amlodipine [Norvasc*] 10 mg PO DAILY #30 tab Cyanoco/FA/Pyri [Folbic*] 1 tab PO DAILY #30 tab Metoprolol Tartrate [Lopressor*] 25 mg PO BID 6AM 6PM #60 tab Pantoprazole [Protonix Tab*] 40 mg PO DAILYAC #30 tab Thiamine HCl [Vitamin B-1*] 100 mg PO DAILY #30 tablet Patient Discharge Instructions: Please follow up with the primary care physician in 2-3 days. Your new prescriptions have been sent to the pharmacy. The include blood pressure medications: Metoprolol and amlodipine. Please return to the emergency room for any worsening symptoms. Diet: AHA Activity: Ad jayro Time spent managing pt's care (in minutes): 55
== END 2019-01-19 14:36 | disposition home or self-care (01) | DRG 313 ==
LOC: ER 10:42 → ERHOLD 13:20 → OBSVTOIN 13:20 → 2ND 16:07
PROVIDERS: ADMIT Family Medicine; ATTEND Family Medicine
DX: R07.9 Chest pain, unspecified (principal); R47.01 Aphasia; F10.230 Alcohol dependence with withdrawal, uncomplicated; E83.51 Hypocalcemia; E86.0 Dehydration; F17.210 Nicotine dependence, cigarettes, uncomplicated; F12.10 Cannabis abuse, uncomplicated; T51.0X1A Toxic effect of ethanol, accidental (unintentional), initial encounter; I25.10 Atherosclerotic heart disease of native coronary artery without angina pectoris; Z95.5 Presence of coronary angioplasty implant and graft; E83.42 Hypomagnesemia; I10 Essential (primary) hypertension
CPT/HCPCS: 36415; 70450; 71045; 80048; 80053; 80320; 82550; 83690; 83735; 84100; 84484; 85025; 85610; 85730; 93005; 93306; 94760; 99291; 99292; J0610; J1650; J3411; J3475; J7030

== ENCOUNTER 2020-07-16 11:12 | Emergency (ER) | payer SELFPAY ==
--- OUTSIDE RECORDS SUMMARY | 2020-07-16 11:16 | XMS REPORT | Continuity of Care Document ---
:1965 Author Organization [facility] t Address [facility] [place] [address] Care Team Providers Name Role Phone Unavailable Unavailable Unavailable Problems This patient has no known problems. Allergies, Adverse Reactions, Alerts This patient has no known allergies or adverse reactions. Medications This patient has no known medications. Procedures This patient has no known procedures. Results This patient has no known results.
[2020-07-16] MEDS ORDERED: ASPIRIN 81 MG CHEWABLE TABLET ONE (12:07)
--- NOTE | 2020-07-16 12:14 | RAD REPORT ---
EXAM DESCRIPTION: Shimon Single View07/16/2020 11:46 am CLINICAL HISTORY: Chest pain COMPARISON: 2019 FINDINGS: The lungs appear clear of acute infiltrate. The heart is normal size IMPRESSION: No acute abnormalities displayed
[2020-07-16 12:33] LABS: Absolute Lymphocytes (CBC) 1.8 K/uL (0.7-4.9); Basophils % 0.4 % (0-1.3); Hematocrit 42.5 % (39.6-49.0); MPV 8.6 fL (7.6-11.3); RBC Red Blood Cell Count 4.56 M/uL (4.33-5.43)
[2020-07-16] MEDS ORDERED: NITROGLYCERIN 0.4 MG/TAB SL ONE (12:39)
[2020-07-16 12:42] LABS: Protime INR 0.82
[2020-07-16] MEDS ORDERED: MEPERIDINE HCL 50 MG/ML ONE (12:43)
[2020-07-16] MEDS ORDERED: ONDANSETRON 4 MG/2 ML VIAL ONE (12:44)
--- NOTE | 2020-07-16 13:08 | RAD REPORT ---
EXAM DESCRIPTION: US - Abdomen Exam Limited - 07/16/2020 1:00 pm CLINICAL HISTORY: R/O GB;Abd pain Right upper quadrant abdominal pain COMPARISON: No comparisons FINDINGS: The gallbladder demonstrates no gallstones. No pericholecystic fluid or gallbladder wall t hickening. The common bile duct is normal measuring 5 mm. The liver demonstrates no findings of intrahepatic biliary dilatation. IMPRESSION: Unremarkable examination.
[2020-07-16 13:16] LABS: ALT/SGPT 27 U/L (12-78); AST/SGOT 13 U/L (15-37); Albumin 4.1 g/dL (3.4-5.0); Alkaline Phosphatase 94 U/L (45-117); BUN Blood Urea Nitrogen 16 mg/dL (7-18); Bilirubin Direct 0.2 mg/dL (0-0.2); Bilirubin Total 0.9 mg/dL (0.2-1.0); Glucose Level 308 mg/dL (74-106); NT PRO-BNP 445 pg/mL (<125); Potassium 4.4 mmol/L (3.5-5.1); Protein, Total 7.7 g/dL (6.4-8.2); Sodium Level 130 mmol/L (136-145); Troponin (Emerg Dept Use Only) < 0.02 ng/mL (0.0-0.045)
[2020-07-16 13:18] LABS: Bicarbonate 11 mmol/L (21-32)
[2020-07-16] MEDS ORDERED: NA CHLORIDE 0.9% 1,000 ML ONE (13:41)
--- NOTE | 2020-07-16 14:32 | ER ---
Nurse's Notes [facility] Name: Tj Pearce Age: 55 yrs Sex: Male : 1965 Arrival Date: 07/16/2020 Time: 11:14 Bed 15 Private MD: Diagnosis: Chest pain, unspecified Presentation: 07/16 11:15 Chief complaint: Patient states: L sided chest pain since Tuesday, constant and steady, ca1 non-radiating, sharp. Reports hx of heart attack and 2 stents. Also reports lower abdominal pain and RUQ pain. Reports SOB and lightheadness with CP. Denies injury to chest. Reports SOB with exertion. Coronavirus screen: Client denies travel out of the [place] in the last 14 days. At this time, the client does not indicate any symptoms associated with coronavirus-19. Ebola Screen: Patient negative for fever greater than or equal to 101.5 degrees Fahrenheit, and additional compatible Ebola Virus Disease symptoms Patient denies exposure to infectious person. Patient denies travel to an Ebola-affected area in the 21 days before illness onset. No symptoms or risks identified at this time. Initial Sepsis Screen: Does the patient meet any 2 criteria? No. Patient's initial sepsis screen is negative. Does the patient have a suspected source of infection? No. Patient's initial sepsis screen is negative. Risk Assessment: Do you want to hurt yourself or someone else? Patient reports no desire to harm self or others. Onset of symptoms was July 16, 2020. 11:15 Method Of Arrival: Wheelchair ca1 11:15 Acuity: SONDRA 3 ca1 Historical: - Allergies: 11:20 Codeine; ca1 - PMHx: 11:20 High Cholesterol; CAD; Hypertension; Myocardial infarction; Diabetes - IDDM; ca1 - PSHx: 11:20 Heart stents; ca1 - Immunization history:: Adult Immunizations up to date. - Social history:: Smoking status: Patient reports the use of cigarette tobacco products, smokes one-half pack cigarettes per day, Patient uses alcohol, on a daily basis. Screenin:14 Abuse screen: Denies threats or abuse. Nutritional screening: No deficits noted. tw2 Tuberculosis screening: No symptoms or risk factors identified. Fall Risk None identified. Assessment: 12:00 General: Appears in no apparent distress. slender, Behavior is calm, cooperative, tw2 appropriate for age. Neuro: Level of Consciousness is awake, alert, obeys commands, Oriented to person, place, time, situation. Cardiovascular: Heart tones S1 S2 Patient's skin is warm and dry. Respiratory: Airway is patent Respiratory effort is even, unlabored, Respiratory pattern is regular, symmetrical, Breath sounds are clear bilaterally. GI: Abdomen is flat, Bowel sounds present X 4 quads. Reports lower abdominal pain, upper abdominal pain. : No signs and/or symptoms were reported regarding the genitourinary system. EENT: No signs and/or symptoms were reported regarding the EENT system. Derm: No signs and/or symptoms reported regarding the dermatologic system. Musculoskeletal: Range of motion: intact in all extremities. 12:30 Reassessment: No changes from previously documented assessment. Patient and/or family tw2 updated on plan of care and expected duration. Pain level reassessed. Patient is alert, oriented x 3, equal unlabored respirations, skin warm/dry/pink. pt c/o abdominal pain, provider notified, medicated as ordered. Patient states symptoms have not improved. 13:14 Pain: Pain began "this past Tuesday". Pain: Pain does not radiate. Cardiovascular: tw2 Reports chest pain. GI: Reports lower abdominal pain, upper abdominal pain. 14:24 Reassessment: Patient appears in no apparent distress at this time. No changes from tw2 previously documented assessment. Patient and/or family updated on plan of care and expected duration. Pain level reassessed. Patient is alert, oriented x 3, equal unlabored respirations, skin warm/dry/pink. provider at bedside at this time. 14:39 Reassessment: Patient appears in no apparent distress at this time. No changes from tw2 previously documented assessment. Patient and/or family updated on plan of care and expected duration. Pain level reassessed. Patient is alert, oriented x 3, equal unlabored respirations, skin warm/dry/pink. Vital Signs: 11:15 BP 130 / 78; Pulse 112; Resp 17 S; Temp 97.4(TE); Pulse Ox 100% on R/A; Weight 72.57 kg ca1 (R); Height 5 ft. 11 in. (180.34 cm) (R); Pain 4/10; 12:30 BP 126 / 73; Pulse 85; Resp 17; Pulse Ox 99% on R/A; tw2 13:12 BP 126 / 70; Pulse 79; Resp 20; Pulse Ox 100% on R/A; Pain 4/10; tw2 14:24 BP 118 / 73; Pulse 77; Resp 17; Pulse Ox 100% on R/A; tw2 11:15 Body Mass Index 22.32 (72.57 kg, 180.34 cm) ca1 13:12 pt states "4 in my stomach and about a 3 in my chest" tw2 ED Course: 11:14 Patient arrived in ED. ag5 11:19 Triage completed. ca1 11:20 Arm band placed on right wrist. ca1 11:22 Adán Arias PA is PHCP. jr8 11:22 Avel Munson MD is Attending Physician. jr8 11:37 Dina Pizano, RN is Primary Nurse. jr10 11:46 XRAY Chest (1 view) In Process Unspecified. EDMS 11:50 Bed in low position. Call light in reach. manager monitoring on. Pulse ox on. NIBP on. tw2 11:52 Primary Nurse role handed off by Dina Pizano RN tw2 11:52 Loly Engle RN is Primary Nurse. tw2 12:06 Missed attempt(s): 20 gauge in right antecubital area. Bleeding controlled, band aid tw2 applied, catheter tip intact. Missed attempt(s): 20 gauge in right forearm. notified DIOGO Arroyo of need for IV at this time.. Bleeding controlled, band aid applied, catheter tip intact. 12:15 Inserted saline lock: 20 gauge in left forearm, using aseptic technique. ,using aseptic tw2 technique. DIOGO Arroyo Blood collected. 13:00 US Abdomen Limited In Process Unspecified. EDMS 13:15 Patient maintains SpO2 saturation greater than 95% on room air. tw2 14:31 Juan Silverman MD is Referral Physician. jr8 14:39 No provider procedures requiring assistance completed. IV discontinued, intact, tw2 bleeding controlled, No redness/swelling at site. Pressure dressing applied. Administered Medications: 11:57 Drug: Aspirin Chewable Tablet 324 mg Route: PO; tw2 12:37 Follow up: Response: No adverse reaction tw2 12:29 Not Given (Physician Discretion): Nitroglycerin 0.4 mg Sublingual once jr8 12:35 Drug: Zofran (Ondansetron) 4 mg Route: IVP; Site: left forearm; tw2 13:13 Follow up: Response: No adverse reaction tw2 12:37 Drug: Demerol 25 mg Route: IVP; Site: left forearm; tw2 13:13 Follow up: Response: No adverse reaction; Pain is decreased; RASS: Alert and Calm (0) tw2 13:32 Drug: NS 0.9% 1000 ml Route: IV; Rate: 1000 ml; Site: left forearm; tw2 14:20 Follow up: Response: No adverse reaction; IV Status: Completed infusion; IV Intake: tw2 1000ml 14:35 Drug: TORadol - Ketorolac 15 mg Route: IVP; Site: left forearm; tw2 14:40 Follow up: Response: No adverse reaction tw2 Intake: 14:20 IV: 1000ml; Total: 1000ml. tw2 Outcome: 14:32 Discharge ordered by . jr8 14:39 Discharged to home ambulatory. tw2 14:39 Condition: stable 14:39 Discharge instructions given to patient, Instructed on discharge instructions, follow up and referral plans. Demonstrated understanding of instructions, follow-up care. 14:40 Patient left the ED. tw2 Signatures: Dispatcher [employer] EDMS Adán Arias PA PA jr8 Loly Engle RN RN tw2 Patricia Patel RN RN ca1 Chasity Aguiar 5 Dina Pizano RN RN jr10 Corrections: (The following items were deleted from the chart) 12:13 12:06 Missed attempt(s): 20 gauge in right forearm. notified DIOGO Arroyo. Bleeding tw2 controlled, band aid applied, catheter tip intact. tw2
--- NOTE | 2020-07-16 14:32 | EDPHYS ---
Physician Documentation [facility] Name: Tj Pearce Age: 55 yrs Sex: Male : 1965 Arrival Date: 07/16/2020 Time: 11:14 Bed 15 Private MD: ED Physician Avel Munson HPI: 07/16 12:02 This 55 yrs old Male presents to ER via Wheelchair with complaints of Chest jr8 Pain. 12:02 The patient or guardian reports chest pain that is located primarily in the substernal jr8 area. Onset: acutely, 5 day(s) ago. 12:06 The pain does not radiate. Associated signs and symptoms: The patient has no apparent jr8 associated signs or symptoms. The chest pain is described as sharp. Duration: The patient or guardian reports a single episode. Modifying factors: The symptoms are alleviated by nothing. the symptoms are aggravated by nothing. Severity of pain: At its worst the pain was moderate in the emergency department the pain is unchanged. The patient has experienced similar episodes in the past, a few times. The patient has not recently seen a physician. Historical: - Allergies: 11:20 Codeine; ca1 - PMHx: 11:20 High Cholesterol; CAD; Hypertension; Myocardial infarction; Diabetes - IDDM; ca1 - PSHx: 11:20 Heart stents; ca1 - Immunization history:: Adult Immunizations up to date. - Social history:: Smoking status: Patient reports the use of cigarette tobacco products, smokes one-half pack cigarettes per day, Patient uses alcohol, on a daily basis. ROS: 12:07 Eyes: Negative for injury, pain, redness, and discharge, ENT: Negative for injury, jr8 pain, and discharge, Neck: Negative for injury, pain, and swelling, Respiratory: Negative for shortness of breath, cough, wheezing, and pleuritic chest pain, Back: Negative for injury and pain, MS/Extremity: Negative for injury and deformity, Skin: Negative for injury, rash, and discoloration, Neuro: Negative for headache, weakness, numbness, tingling, and seizure. 12:07 Cardiovascular: Positive for chest pain, Negative for edema, orthopnea, palpitations, paroxysmal nocturnal dyspnea. 12:07 Abdomen/GI: Positive for abdominal pain, constipation, Negative for nausea, vomiting, and diarrhea, abdominal cramps, abdominal distension. Exam: 12:07 Eyes: Pupils equal round and reactive to light, extra-ocular motions intact. Lids and jr8 lashes normal. Conjunctiva and sclera are non-icteric and not injected. Cornea within normal limits. Periorbital areas with no swelling, redness, or edema. ENT: Nares patent. No nasal discharge, no septal abnormalities noted. Tympanic membranes are normal and external auditory canals are clear. Oropharynx with no redness, swelling, or masses, exudates, or evidence of obstruction, uvula midline. Mucous membranes moist. Neck: Trachea midline, no thyromegaly or masses palpated, and no cervical lymphadenopathy. Supple, full range of motion without nuchal rigidity, or vertebral point tenderness. No Meningismus. Cardiovascular: Regular rate and rhythm with a normal S1 and S2. No gallops, murmurs, or rubs. Normal PMI, no JVD. No pulse deficits. Respiratory: Lungs have equal breath sounds bilaterally, clear to auscultation and percussion. No rales, rhonchi or wheezes noted. No increased work of breathing, no retractions or nasal flaring. Abdomen/GI: Soft, non-tender, with normal bowel sounds. No distension or tympany. No guarding or rebound. No evidence of tenderness throughout. Back: No spinal tenderness. No costovertebral tenderness. Full range of motion. Skin: Warm, dry with normal turgor. Normal color with no rashes, no lesions, and no evidence of cellulitis. MS/ Extremity: Pulses equal, no cyanosis. Neurovascular intact. Full, normal range of motion. Neuro: Awake and alert, GCS 15, oriented to person, place, time, and situation. Cranial nerves II-XII grossly intact. Motor strength 5/5 in all extremities. Sensory grossly intact. Cerebellar exam normal. Normal gait. 12:08 ECG was reviewed by the Attending Physician. 8 Vital Signs: 11:15 BP 130 / 78; Pulse 112; Resp 17 S; Temp 97.4(TE); Pulse Ox 100% on R/A; Weight 72.57 kg ca1 (R); Height 5 ft. 11 in. (180.34 cm) (R); Pain 4/10; 12:30 BP 126 / 73; Pulse 85; Resp 17; Pulse Ox 99% on R/A; tw2 13:12 BP 126 / 70; Pulse 79; Resp 20; Pulse Ox 100% on R/A; Pain 4/10; tw2 14:24 BP 118 / 73; Pulse 77; Resp 17; Pulse Ox 100% on R/A; tw2 11:15 Body Mass Index 22.32 (72.57 kg, 180.34 cm) ca1 13:12 pt states "4 in my stomach and about a 3 in my chest" tw2 MDM: 11:23 Patient medically screened. jr8 12:25 The patient was given aspirin in the Emergency Department. The patient's pulmonary jr8 embolism risk score was calculated as follows: the patients heart rate is greater than 100 beats per minute (1.5 Pts) Total Score: 0-2 points. This patient was found to be at low risk for a pulmonary embolism by using the Well's assessment criteria. 14:31 Data reviewed: vital signs, nurses notes, lab test result(s), EKG, radiologic studies, jr8 plain films, and as a result, I will discharge patient. Data interpreted: Pulse oximetry: on room air is 100 %. Interpretation: normal. 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 07/16 11:32 Order name: Basic Metabolic Panel; Complete Time: 13:22 07/16 11:32 Order name: CBC with Diff; Complete Time: 12:41 07/16 11:32 Order name: LFT's; Complete Time: 13:22 07/16 11:32 Order name: Magnesium; Complete Time: 13:22 07/16 11:32 Order name: NT PRO-BNP; Complete Time: 13:22 07/16 11:32 Order name: PT-INR; Complete Time: 12:48 07/16 11:32 Order name: Troponin (emerg Dept Use Only); Complete Time: 13:22 07/16 11:32 Order name: XRAY Chest (1 view); Complete Time: 12:17 07/16 12:30 Order name: Lipase; Complete Time: 13:12 07/16 12:30 Order name: US Abdomen Limited; Complete Time: 13:09 07/16 11:32 Order name: EKG; Complete Time: 11:33 07/16 11:32 Order name: Cardiac monitoring; Complete Time: 11:58 07/16 11:32 Order name: EKG - Nurse/Tech; Complete Time: 11:38 07/16 11:32 Order name: IV Saline Lock; Complete Time: 13:43 07/16 11:32 Order name: Labs collected and sent; Complete Time: 13:43 07/16 11:32 Order name: O2 Per Protocol; Complete Time: 11:38 07/16 11:32 Order name: O2 Sat Monitoring; Complete Time: 11:38 EC:08 Rate is 101 beats/min. Rhythm is regular, Sinus tachycardia. QRS [place] is Normal. CO jr8 interval is normal at 138 msec. QRS interval is normal at 84 msec. QT interval is normal at 446 msec. No Q waves. T waves are Normal. No ST changes noted. Clinical impression: Sinus tachycardia. Interpreted by me. Administered Medications: 11:57 Drug: Aspirin Chewable Tablet 324 mg Route: PO; tw2 12:37 Follow up: Response: No adverse reaction tw2 12:29 Not Given (Physician Discretion): Nitroglycerin 0.4 mg Sublingual once jr8 12:35 Drug: Zofran (Ondansetron) 4 mg Route: IVP; Site: left forearm; tw2 13:13 Follow up: Response: No adverse reaction tw2 12:37 Drug: Demerol 25 mg Route: IVP; Site: left forearm; tw2 13:13 Follow up: Response: No adverse reaction; Pain is decreased; RASS: Alert and Calm (0) tw2 13:32 Drug: NS 0.9% 1000 ml Route: IV; Rate: 1000 ml; Site: left forearm; tw2 14:20 Follow up: Response: No adverse reaction; IV Status: Completed infusion; IV Intake: tw2 1000ml 14:35 Drug: TORadol - Ketorolac 15 mg Route: IVP; Site: left forearm; tw2 14:40 Follow up: Response: No adverse reaction tw2 Disposition: 15:18 Co-signature as Attending Physician, Avel Munson MD. rn Disposition: 07/16/20 14:32 Discharged to Home. Impression: Chest pain, unspecified. - Condition is Stable. - Discharge Instructions: Nonspecific Chest Pain. - Medication Reconciliation Form, Thank You Letter, Antibiotic Education, Prescription Opioid Use, Work release form form. - Follow up: Juan Silverman MD; When: 2 - 3 days; Reason: Recheck today's complaints, Continuance of care, Re-evaluation by your physician. - Problem is new. - Symptoms have improved. Signatures: Dispatcher [employer] EDMS Avel Munson MD MD rn Adán Arias PA PA jr8 Loly Engle RN RN tw2 Patricia Patel RN RN ca1 Corrections: (The following items were deleted from the chart) 12:08 12:02 Onset: acutely, today, jr8 jr8 14:40 14:32 07/16/2020 14:32 Discharged to Home. Impression: Chest pain, unspecified. tw2 Condition is Stable. Forms are Work release form, Medication Reconciliation Form, Thank You Letter, Antibiotic Education, Prescription Opioid Use. Follow up: Juan Silverman; When: 2 - 3 days; Reason: Recheck today's complaints, Continuance of care, Re-evaluation by your physician. Problem is new. Symptoms have improved. jr8
[2020-07-16 14:44] VITALS: TEMP 97.4
[2020-07-16] MEDS ORDERED: KETOROLAC 30 MG/ML INJ ONE (14:46)
[2020-07-16 14:47] VITALS: O2SAT 100
[2020-07-16 14:48] VITALS: BP 118/73
== END 2020-07-16 14:40 | disposition home or self-care (01) ==
LOC: ER 11:12
DX: R07.9 Chest pain, unspecified (principal); I10 Essential (primary) hypertension; F17.210 Nicotine dependence, cigarettes, uncomplicated; Z95.818 Presence of other cardiac implants and grafts; Z88.5 Allergy status to narcotic agent
CPT/HCPCS: 36415; 71045; 76705; 80048; 80076; 83690; 83735; 83880; 84484; 85025; 85610; 93005; 96361; 96374; 96375; 99285; J2175; J2405; J7030

== ENCOUNTER 2020-11-20 08:01 | Inpatient (IN) | payer SELFPAY ==
--- OUTSIDE RECORDS SUMMARY | 2020-11-20 08:16 | XMS REPORT | Continuity of Care Document ---
:1965 [address] [facility] t Address [address] [place] [address] Care Team Providers Name Role Phone Unavailable Unavailable Unavailable Problems This patient has no known problems. Allergies, Adverse Reactions, Alerts This patient has no known allergies or adverse reactions. Medications This patient has no known medications. Procedures This patient has no known procedures. Results This patient has no known results.
[2020-11-20] MEDS ORDERED: INSULIN -REGULAR HUMAN 100 UNIT in NA CHLORIDE 0.9% 100 ML IV SCH ×2 (09:00→14:30)
[2020-11-20 09:05] LABS: Protime INR 0.91
[2020-11-20 09:06] LABS: Absolute Lymphocytes (CBC) 0.4 K/uL (0.7-4.9); Basophils % 0.3 % (0-1.3); Hematocrit 48.8 % (39.6-49.0); MPV 9.1 fL (7.6-11.3); RBC Red Blood Cell Count 4.82 M/uL (4.33-5.43)
[2020-11-20] MEDS ORDERED: MORPHINE 4 MG/ML SYR ONE ×2 (09:13→14:33)
[2020-11-20] MEDS ORDERED: ONDANSETRON 4 MG/2 ML VIAL ONE ×2 (09:13→20:17)
[2020-11-20] MEDS ORDERED: INSULIN -REGULAR HUMAN 50 UNIT/0.5 ML ML ONE (09:14)
[2020-11-20] MEDS ORDERED: NA CHLORIDE 0.9% 2,000 ML ONE (09:14)
--- NOTE | 2020-11-20 09:27 | RAD REPORT ---
EXAM DESCRIPTION: RAD - Chest Single View - 11/20/2020 9:21 am CLINICAL HISTORY: CHEST PAIN Chest pain. COMPARISON: Chest Single View dated 07/16/2020; Chest Single View dated 01/16/2019; Chest Single View d ated 11/12/2017; Chest Pa And Lat (2 Views) dated 03/24/2016 FINDINGS: Portable technique limits examination quality. The lungs are grossly clear. The heart is normal in size. No displaced fractures. IMPRESSION: No acute intrathoracic process suspected.
[2020-11-20 09:49] LABS: Blood Morphology Comment NOT SEEN (NOT SEEN); Platelet Estimate ADEQ; Platelets, Giant FEW
[2020-11-20 09:57] LABS: BUN Blood Urea Nitrogen 25 mg/dL (7-18); Potassium 4.8 mmol/L (3.5-5.1); Sodium Level 128 mmol/L (136-145)
--- NOTE | 2020-11-20 09:57 | RAD REPORT ---
EXAM DESCRIPTION: CT - Chest Abdomen Pelvis W Cont - 11/20/2020 9:34 am CLINICAL HISTORY: Chest and abdomen pain. LUQ abdominal pain;Chest pain COMPARISON: CT ABD PELVIS W CONTRAST dated 11/07/2014 TECHNIQUE: Approximately 100 mL nonionic IV contrast was administered to the patient. All CT scans are performed using dose optimization technique as appropriate and may include automated exposure control or mA/KV adjustment according to patient size. FINDINGS: Areas of ground-glass opacity are seen in the periphery of both lower lobes, greatest in r ight middle lobe.Calcified pleural plaque is seen along the right hemidiaphragm.No pleural or pericar dial effusion.No intrathoracic adenopathy. Advanced fatty liver infiltration is seen. The spleen adrenal glands and kidneys are within normal li mits. The pancreatic tail appears atrophic. There is subtle edematous appearance to the head of pancr eas. Small 13 mm cyst is present in the pancreatic tail is present. No bowel obstruction, free air, free fluid or abscess. Normal appendix. Improvement stool is retained in the colon. Circumferential thickening is seen the rectal wall measuring up to 15 mm. No pathologi c lymphadenopathy in the abdomen or pelvis. Mild lumbar degenerative changes. IMPRESSION: Equivocal findings of early/mild acute pancreatitis are present. Suggest correlation wit h amylase and lipase levels. Ground-glass opacities in both lung bases are nonspecific but have been described in COVID-19 infecti on. Thickening of the rectal wall up to 15 mm is present. Followup colonoscopy would be suggested if not recently performed. Advanced fatty liver.
[2020-11-20 09:58] LABS: ALT/SGPT 70 U/L (12-78); AST/SGOT 46 U/L (15-37); Albumin 4.4 g/dL (3.4-5.0); Alkaline Phosphatase 259 U/L (45-117); Bilirubin Direct 0.2 mg/dL (0-0.2); Bilirubin Total 0.8 mg/dL (0.2-1.0); Glucose Level 429 mg/dL (74-106); Magnesium 2.9 mg/dL (1.8-2.4); NT PRO-BNP 3695 pg/mL (<125); Protein, Total 9.3 g/dL (6.4-8.2); Troponin (Emerg Dept Use Only) < 0.02 ng/mL (0.0-0.045)
[2020-11-20 10:03] LABS: Bicarbonate 5 mmol/L (21-32)
[2020-11-20] MEDS ORDERED: CEFTRIAXONE/SWI 1gm 1 GM/10 ML SYR ONE (10:25)
[2020-11-20 12:00] LABS: CKMB Creatine Kinase MB 3.1 ng/mL (0.3-3.6)
--- NOTE | 2020-11-20 12:40 | EDPHYS ---
Physician Documentation [facility] [place] Name: Tj Pearce Age: 55 yrs Sex: Male : 1965 Arrival Date: 11/20/2020 Time: 08:15 Bed 19 Private MD: ED Physician Jaylon Brewer HPI: 11/20 15:56 This 55 yrs old Male presents to ER via EMS with complaints of left shoulder kdr and chest pain. 15:56 The patient or guardian reports chest pain that is located primarily in the anterior kdr chest wall, left, left lateral anterior chest and left lateral posterior chest. Onset: suddenly, this morning, at 03:00. The pain radiates to the left shoulder, left back. Associated signs and symptoms: Pertinent positives: nausea. The chest pain is described as aching, throbbing. Duration: The patient or guardian reports multiple episodes, that are intermittent, that wax and wane, with no pattern. Modifying factors: The symptoms are alleviated by nothing. the symptoms are aggravated by movement. Severity of pain: At its worst the pain was moderate in the emergency department the pain is unchanged. The patient has not experienced similar symptoms in the past. The patient has not recently seen a physician. Historical: - Allergies: 08:28 Codeine; jl7 - Home Meds: 08:28 Jardiance oral oral [Active]; lisinopril Oral [Active]; Metformin Oral [Active]; jl7 Insulin: Regular Sub-Q [Active]; - PMHx: 08:28 CAD; Diabetes - IDDM; High Cholesterol; Hypertension; Myocardial infarction; jl7 - PSHx: 08:28 Heart stents; jl7 - Immunization history:: Adult Immunizations up to date. - Social history:: Smoking status: Patient reports the use of cigarette tobacco products, smokes one pack cigarettes per day. Patient uses alcohol, on a daily basis. 4 glasses wine/day. street drugs, marijuana. ROS: 15:56 Constitutional: Negative for fever, chills, and weight loss, Eyes: Negative for injury, kdr pain, redness, and discharge, ENT: Negative for injury, pain, and discharge, Neck: Negative for injury, pain, and swelling, Respiratory: Negative for shortness of breath, cough, wheezing, and pleuritic chest pain, Abdomen/GI: Negative for abdominal pain, nausea, vomiting, diarrhea, and constipation, Back: Negative for injury and pain, : Negative for injury, bleeding, discharge, and swelling, MS/Extremity: Negative for injury and deformity, Skin: Negative for injury, rash, and discoloration, Neuro: Negative for headache, weakness, numbness, tingling, and seizure activity. Psych: Negative for depression, anxiety, suicide ideation, homicidal ideation, and hallucinations, Allergy/Immunology: Negative for hives, rash, and allergies, Endocrine: Negative for neck swelling, polydipsia, polyuria, polyphagia, and marked weight changes, Hematologic/Lymphatic: Negative for swollen nodes, abnormal bleeding, and unusual bruising. 15:56 Cardiovascular: Positive for chest pain, with cough. 15:56 MS/extremity: Positive for pain, of the left scapular area and left arm. Exam: 15:56 Constitutional: This is a well developed, well nourished patient who is awake, alert, kdr and in no acute distress. Head/Face: Normocephalic, atraumatic. Eyes: Pupils equal round and reactive to light, extra-ocular motions intact. Lids and lashes normal. Conjunctiva and sclera are non-icteric and not injected. Cornea within normal limits. Periorbital areas with no swelling, redness, or edema. Neck: Trachea midline, no thyromegaly or masses palpated, and no cervical lymphadenopathy. Supple, full range of motion without nuchal rigidity, or vertebral point tenderness. No Meningismus. Chest/axilla: Normal chest wall appearance and motion. Nontender with no deformity. No lesions are appreciated. Cardiovascular: Regular rate and rhythm with a normal S1 and S2. No gallops, murmurs, or rubs. Normal PMI, no JVD. No pulse deficits. Respiratory: Lungs have equal breath sounds bilaterally, clear to auscultation and percussion. No rales, rhonchi or wheezes noted. No increased work of breathing, no retractions or nasal flaring. Abdomen/GI: Soft, non-tender, with normal bowel sounds. No distension or tympany. No guarding or rebound. No evidence of tenderness throughout. Back: No spinal tenderness. No costovertebral tenderness. Full range of motion. Skin: Warm, dry with normal turgor. Normal color with no rashes, no lesions, and no evidence of cellulitis. MS/ Extremity: Pulses equal, no cyanosis. Neurovascular intact. Full, normal range of motion. Neuro: Awake and alert, GCS 15, oriented to person, place, time, and situation. Cranial nerves II-XII grossly intact. Motor strength 5/5 in all extremities. Sensory grossly intact. Cerebellar exam normal. Normal gait. 11/21 16:53 ECG was reviewed by the Attending Physician. kdr Vital Signs: 11/20 08:17 BP 144 / 85; Pulse 100; Resp 25 S; Temp 97.1(TE); Pulse Ox 100% on R/A; Pain 9/10; jl7 09:22 BP 144 / 85; Pulse 101; Resp 16; Pulse Ox 100% ; jl7 10:11 BP 151 / 86; Pulse 103; Resp 22; Pulse Ox 100% ; Weight 79.83 kg; jl7 12:24 BP 128 / 76; Pulse 97; Resp 21; Pulse Ox 99% ; jl7 14:37 BP 117 / 71; Pulse 102; Resp 21; Pulse Ox 99% ; jl7 16:00 BP 157 / 90; Pulse 102; Resp 23; Pulse Ox 100% ; jl7 17:00 BP 150 / 92; Pulse 102; Resp 19; Pulse Ox 100% ; jl7 18:00 BP 169 / 89; Pulse 103; Resp 21; Pulse Ox 100% ; jl7 19:00 BP 164 / 86; Pulse 103; Resp 22; Pulse Ox 99% ; Pain 7/10; jl7 MDM: 12:36 Patient medically screened. kdr 15:56 HEART Score: History: Moderately Suspicious (1), ECG: Normal (0), Age: > 45 and < 65 kdr years (1), Risk Factors: > or = 3 Risk factors for atherosclerotic disease (2), Troponin: < or = 1 x Normal Limit (0), Total Score = 4. The patient was given aspirin in the Emergency Department. Data reviewed: vital signs, nurses notes, lab test result(s), EKG, radiologic studies. 11/20 08:21 Order name: Basic Metabolic Panel [facility] 11/20 08:21 Order name: CBC with Diff; Complete Time: 10:10 [facility] 11/20 08:21 Order name: LFT's [facility] 11/20 08:21 Order name: Magnesium; Complete Time: 10:10 [facility] 11/20 08:21 Order name: NT PRO-BNP; Complete Time: 10:10 kdr 11/20 08:21 Order name: PT-INR; Complete Time: 09:21 kdr 11/20 08:21 Order name: Troponin (emerg Dept Use Only); Complete Time: 10:11 kdr 11/20 08:22 Order name: Basic Metabolic Panel; Complete Time: 10:10 EDMS 11/20 08:22 Order name: Liver (Hepatic) Function; Complete Time: 10:10 EDMS 11/20 08:37 Order name: Glucose, Ancillary Testing; Complete Time: 09:21 EDMS 11/20 09:43 Order name: CREATININE WHOLE BLOOD; Complete Time: 10:11 EDMS 11/20 09:48 Order name: Manual Differential; Complete Time: 10:11 EDMS 11/20 10:13 Order name: Amylase, Serum; Complete Time: 12:04 kdr 11/20 10:13 Order name: Blood Culture Adult (2) kdr 11/20 10:13 Order name: Ckmb; Complete Time: 12:04 kdr 11/20 10:13 Order name: CPK; Complete Time: 12:04 kdr 11/20 10:13 Order name: Lactate; Complete Time: 12:04 kdr 11/20 10:13 Order name: Lipase; Complete Time: 12:04 kdr 11/20 10:13 Order name: Procalcitonin; Complete Time: 12:04 kdr 11/20 10:13 Order name: Ptt, Activated; Complete Time: 12:04 kdr 11/20 10:13 Order name: Urine Microscopic Only; Complete Time: 03:16 kdr 11/20 10:37 Order name: Glucose, Ancillary Testing; Complete Time: 10:55 EDMS 11/20 11:20 Order name: Glucose, Ancillary Testing; Complete Time: 12:04 EDMS 11/20 11:45 Order name: SARS-COV-2 RT PCR; Complete Time: 12:04 EDMS 11/20 12:13 Order name: Basic Metabolic Panel; Complete Time: 13:16 jl7 11/20 12:22 Order name: Glucose, Ancillary Testing; Complete Time: 13:01 EDMS 11/20 12:24 Order name: ABG; Complete Time: 03:16 kdr 11/20 14:31 Order name: Acetone Level EDMS 11/20 14:31 Order name: Acetone Level; Complete Time: 03:16 EDMS 11/20 14:31 Order name: Acetone Level; Complete Time: 03:16 EDMS 11/20 14:31 Order name: Acetone Level; Complete Time: 03:16 EDMS 11/20 14:31 Order name: Basic Metabolic Panel EDMS 11/20 14:31 Order name: Basic Metabolic Panel; Complete Time: 03:16 EDMS 11/20 14:31 Order name: Basic Metabolic Panel; Complete Time: 03:16 EDMS 11/20 14:31 Order name: Basic Metabolic Panel; Complete Time: 03:16 EDMS 11/20 14:31 Order name: Calcium Level EDMS 11/20 14:31 Order name: Calcium Level EDMS 11/20 14:31 Order name: Calcium Level EDMS 11/20 14:31 Order name: Calcium Level EDMS 11/20 14:31 Order name: CBC with Automated Diff EDMS 11/20 14:31 Order name: CBC with Automated Diff EDMS 11/20 14:31 Order name: CBC with Automated Diff EDMS 11/20 14:31 Order name: CBC with Automated Diff EDMS 11/20 14:31 Order name: Lipid Profile EDMS 11/20 14:31 Order name: Lipid Profile EDMS 11/20 14:31 Order name: Magnesium EDMS 11/20 14:31 Order name: Magnesium EDMS 11/20 14:31 Order name: Magnesium EDMS 11/20 14:31 Order name: Magnesium EDMS 11/20 14:31 Order name: Phosphorus EDMS 11/20 14:31 Order name: Phosphorus EDMS 11/20 14:31 Order name: Phosphorus EDMS 11/20 14:31 Order name: Phosphorus EDMS 11/20 14:33 Order name: Troponin I; Complete Time: 03:16 EDMS 11/20 14:45 Order name: Glucose, Ancillary Testing; Complete Time: 03:16 EDMS 11/20 15:44 Order name: Glucose, Ancillary Testing; Complete Time: 03:16 EDMS 11/20 17:07 Order name: Urine Dipstick--Ancillary (enter results) em1 11/20 17:11 Order name: Glucose, Ancillary Testing; Complete Time: 03:16 EDMS 11/20 17:17 Order name: Urine Dipstick-Ancillary; Complete Time: 03:16 EDMS 11/20 18:54 Order name: Glucose, Ancillary Testing; Complete Time: 03:16 EDMS 11/20 08:21 Order name: XRAY Chest (1 view); Complete Time: 10:11 kdr 11/20 08:21 Order name: EKG; Complete Time: 08:22 kdr 11/20 08:21 Order name: Cardiac monitoring; Complete Time: 08:42 kdr 11/20 08:21 Order name: EKG - Nurse/Tech; Complete Time: 08:42 kdr 11/20 08:21 Order name: IV Saline Lock; Complete Time: 08:42 kdr 11/20 08:21 Order name: Labs collected and sent; Complete Time: 08:42 kdr 11/20 08:21 Order name: O2 Per Protocol; Complete Time: 08:42 kdr 11/20 08:21 Order name: O2 Sat Monitoring; Complete Time: 08:42 kdr 11/20 08:31 Order name: CT Chest, Abdomen, Pelvis - W/Contrast; Complete Time: 10:11 kdr 11/20 10:13 Order name: Accucheck; Complete Time: 10:25 kdr 11/20 10:13 Order name: IV Saline Lock - Large Bore; Complete Time: 10:25 kdr 11/20 10:13 Order name: Urine Dipstick-Ancillary (obtain specimen); Complete Time: 17:05 kdr 11/20 14:31 Order name: CONS Pharmacy Consult EDMS 11/20 14:31 Order name: NPO EDMS 11/20 20:21 Order name: Glucose, Ancillary Testing; Complete Time: 03:16 EDMS 11/20 21:23 Order name: Glucose, Ancillary Testing; Complete Time: 03:16 EDMS 11/20 22:14 Order name: Glucose, Ancillary Testing; Complete Time: 03:16 EDMS 11/21 00:29 Order name: Glucose, Ancillary Testing; Complete Time: 03:16 EDMS 11/21 01:31 Order name: Glucose, Ancillary Testing; Complete Time: 03:16 EDMS 11/21 02:32 Order name: Glucose, Ancillary Testing; Complete Time: 03:16 EDMS 11/21 03:21 Order name: Glucose, Ancillary Testing EDMS 11/21 04:17 Order name: Glucose, Ancillary Testing EDMS 11/21 05:18 Order name: Glucose, Ancillary Testing EDMS 11/21 06:22 Order name: Chem 7 rv 11/21 06:34 Order name: Basic Metabolic Panel EDMS 11/21 07:10 Order name: Glucose, Ancillary Testing EDMS 11/21 08:14 Order name: Glucose, Ancillary Testing EDMS 11/21 09:25 Order name: Glucose, Ancillary Testing EDMS 11/21 09:30 Order name: Acetone Level EDMS 11/21 09:33 Order name: Basic Metabolic Panel EDMS 11/21 09:33 Order name: Magnesium EDMS 11/21 10:44 Order name: Glucose, Ancillary Testing EDMS 11/21 12:20 Order name: Glucose, Ancillary Testing EDMS 11/21 12:28 Order name: Basic Metabolic Panel EDMS 11/21 14:20 Order name: Glucose, Ancillary Testing EDMS 11/21 15:40 Order name: Basic Metabolic Panel EDMS 11/21 15:40 Order name: Lipase EDMS 11/21 17:33 Order name: Glucose, Ancillary Testing EDMS EC/15 16:53 Rate is 99 beats/min. Rhythm is regular, Sinus Rhythm with No ectopy. QRS [place] is kdr Normal. VT interval is normal. QRS interval is normal. QT interval is normal. Clinical impression: NSR w/ Non-specific ST/T Changes. Administered Medications: Discontinued: Insulin Drip - (Insulin Regular Human 100 units, NS 0.9% 100 ml) IV at calculated rate continuous; Standard concentration 1unit/ml; Dose for DKA is 0.1 units/kg/hr Discontinued: NS 0.9% 1000 ml IV at 125 ml/hr continuous 11/20 09:10 Drug: Insulin Regular Human 10 units {Co-Signature: rb3 (Annemarie Hendrickson RN).} Route: jl7 IVP; Site: right forearm; 10:30 Follow up: Response: No adverse reaction; Blood sugar is lowered 09:10 Drug: Zofran (Ondansetron) 4 mg Route: IVP; Site: right forearm; jl7 10:26 Follow up: Response: No adverse reaction 09:10 Drug: NS 0.9% 1000 ml Route: IV; Rate: 1 bolus; Site: right forearm; jl 09:30 Follow up: IV Pause: 11/20/2020 09:30; IV Pause Reason: Patient to CT; . 7 10:00 Follow up: IV Status: Infusion continued 7 10:30 Follow up: Response: No adverse reaction; IV Status: Completed infusion; IV Intake: jl7 1000ml 09:10 Drug: NS 0.9% 1000 ml Route: IV; Rate: 125 ml/hr; Site: right forearm; jl7 14:30 Follow up: IV Status: Completed infusion jl7 09:12 Drug: morphine 4 mg Route: IVP; Site: right forearm; jl7 09:30 Follow up: Response: No adverse reaction; Pain is decreased jl7 10:05 Drug: Rocephin - (cefTRIAXone) 1 grams Route: IVPB; Infused Over: 30 mins; Site: right jl7 forearm; 10:08 Follow up: Response: No adverse reaction; IV Status: Completed infusion jl7 10:15 Drug: Insulin Drip - (Insulin Regular Human 100 units, NS 0.9% 100 ml) {Co-Signature: mike rb3 (Annemarie Hendrickson RN).} Route: IV; Rate: calculated rate; Site: right forearm; 12:30 Follow up: IV Status: Completed infusion jl7 14:30 Drug: D5-1/2 NS 1000 ml Route: IV; Rate: 125 ml/hr; Site: right forearm; jl7 15:00 Follow up: IV Status: Infusion continued upon admission jl7 14:35 Drug: morphine 4 mg Route: IVP; Site: right forearm; 7 15:00 Follow up: Response: No adverse reaction; Pain is decreased jl7 14:40 Drug: Insulin Drip - (Insulin Regular Human 100 units, NS 0.9% 100 ml) {Co-Signature: mike rb3 (Annemarie Hendrickson RN).} Route: IV; Rate: 2 units/hr; Site: right forearm; 15:00 Follow up: IV Status: Infusion continued upon admission jl7 Disposition: 11/20/20 12:38 Hospitalization ordered by Jo Rodriguez for Inpatient Admission. Preliminary diagnosis is DKA, abdominal pain, chest pain, n/v. - Bed requested for [facility] ER HOLD. - Status is Inpatient Admission. ph - Condition is Serious. - Problem is new. - Symptoms have improved. Signatures: Dispatcher [employer] EDMS Jaylon Brewer MD MD kdr Williams, Irene, RN RN Adán Arias PA PA 8 Dora Gaitan RN RN ph Leal, Jahala, RN RN jl7 Annemarie Hendrickson RN rb3 Corrections: (The following items were deleted from the chart) 09:48 09:09 CBC Smear Scan ordered. EDMS EDMS 10:50 10:14 CORONAVIRUS+MR.LAB.BRZ ordered. EDMS EDMS 12:37 12:36 11/20/2020 12:36 Discharged to Home. Impression: DKA, Chest Pain, Abdominal Pain, kdr N/V. Condition is Stable. Forms are Medication Reconciliation Form, Thank You Letter, Antibiotic Education, Prescription Opioid Use. Follow up: Jo Rodriguez; When: 2 - 3 days; Reason: If symptoms return, Further diagnostic work-up, Recheck today's complaints, Continuance of care, Re-evaluation by your physician. Problem is new. Symptoms have improved. kdr 16:44 12:38 Hospitalization Ordered by Jo Rodriguez MD for Inpatient Admission. Preliminary iw diagnosis is DKA, abdominal pain, chest pain, n/v. Bed requested for Intensive Care Unit. Status is Inpatient Admission. Condition is Serious. Problem is new. Symptoms have improved. kdr 11/21 18:14 11/20 16:44 11/20/2020 12:38 Hospitalization Ordered by Jo Rodriguez MD for Inpatient ph Admission. Preliminary diagnosis is DKA, abdominal pain, chest pain, n/v. Bed requested for [facility] ER HOLD. Status is Inpatient Admission. Condition is Serious. Problem is new. Symptoms have improved. iw
--- NOTE | 2020-11-20 12:40 | ER ---
Nurse's Notes [facility] Name: Tj Pearce Age: 55 yrs Sex: Male : 1965 Arrival Date: 11/20/2020 Time: 08:15 Bed 19 Private MD: Diagnosis: DKA, abdominal pain, chest pain, n/v Presentation: 11/20 08:17 Chief complaint: EMS states: Left sided CP radiating to left arm x 4 days, SOB x 4 days jl7 and left lower abdominal pain x 4 days, denies fever, pt reports nausea, denies V/D. BGL 453. Coronavirus screen: nausea, shortness of breath. Ebola Screen: No symptoms or risks identified at this time. Initial Sepsis Screen: Does the patient meet any 2 criteria? RR > 20 per min. HR > 90 bpm. Does the patient have a suspected source of infection? No. Patient's initial sepsis screen is negative. Risk Assessment: Do you want to hurt yourself or someone else? Patient reports no desire to harm self or others. Onset of symptoms was November 17, 2020. Care prior to arrival: Medication(s) given: ASA, 81 mg, x 4, Nitro x 1 SL IV initiated. 20 GA, in the right forearm, Glucose check: 453. Transition of care: patient was not received from another setting of care. 08:17 Method Of Arrival: EMS: [facility] 08:17 Acuity: SONDRA 2 jl Historical: - Allergies: 08:28 Codeine; jl - Home Meds: 08:28 Jardiance oral oral [Active]; lisinopril Oral [Active]; Metformin Oral [Active]; jl Insulin: Regular Sub-Q [Active]; - PMHx: 08:28 CAD; Diabetes - IDDM; High Cholesterol; Hypertension; Myocardial infarction; jl7 - PSHx: 08:28 Heart stents; jl7 - Immunization history:: Adult Immunizations up to date. - Social history:: Smoking status: Patient reports the use of cigarette tobacco products, smokes one pack cigarettes per day. Patient uses alcohol, on a daily basis. 4 glasses wine/day. street drugs, marijuana. Screenin:22 Abuse screen: Denies threats or abuse. Denies injuries from another. Nutritional jl7 screening: No deficits noted. Tuberculosis screening: No symptoms or risk factors identified. Fall Risk IV access (20 points). Assessment: 08:30 General: Appears distressed, uncomfortable, ill, Behavior is cooperative, anxious. jl7 Pain: Complains of pain in anterior aspect of left upper chest Pain radiates to left arm Pain currently is 9 out of 10 on a pain scale. Quality of pain is described as sharp, Pain began x 4 days Is continuous. Neuro: Level of Consciousness is awake, alert, obeys commands, Oriented to person, place, time, situation. Cardiovascular: Patient's skin is warm and dry. Rhythm is sinus tachycardia. Respiratory: Airway is patent Respiratory effort is even, unlabored, Respiratory pattern is symmetrical, Kussmaul tachypnea. GI: Reports lower abdominal pain, nausea, Patient currently denies diarrhea, vomiting. Derm: Skin is pink, warm \T\ dry. 09:30 Reassessment: Patient appears in no apparent distress at this time. Patient and/or jl7 family updated on plan of care and expected duration. Pain level reassessed. Patient is alert, oriented x 3, equal unlabored respirations, skin warm/dry/pink. reports decrease in pain. 10:00 Reassessment: Received lab alert for CO2 = 5, and Glucose 429. 100% read back. rb3 11:00 Reassessment: Patient appears in no apparent distress at this time. No changes from jl7 previously documented assessment. Patient and/or family updated on plan of care and expected duration. Pain level reassessed. Patient is alert, oriented x 3, equal unlabored respirations, skin warm/dry/pink. 12:00 Reassessment: Patient appears in no apparent distress at this time. Patient and/or jl7 family updated on plan of care and expected duration. Pain level reassessed. Patient is alert, oriented x 3, equal unlabored respirations, skin warm/dry/pink. Patient states feeling better. Patient states symptoms have improved. 12:10 Reassessment: BGL 152, ERD notified, VO to dc insulin drip and repeat BMP. jl7 14:37 Reassessment: BGL 120, ERD notified, VO to change new drip rate to 1 unit/hr. jl7 15:30 Reassessment: BGL 208, insulin drip increased to 2 units/hr, ERD notified. jl7 Vital Signs: 08:17 BP 144 / 85; Pulse 100; Resp 25 S; Temp 97.1(TE); Pulse Ox 100% on R/A; Pain 9/10; jl7 09:22 BP 144 / 85; Pulse 101; Resp 16; Pulse Ox 100% ; jl7 10:11 BP 151 / 86; Pulse 103; Resp 22; Pulse Ox 100% ; Weight 79.83 kg; jl7 12:24 BP 128 / 76; Pulse 97; Resp 21; Pulse Ox 99% ; jl7 14:37 BP 117 / 71; Pulse 102; Resp 21; Pulse Ox 99% ; jl7 16:00 BP 157 / 90; Pulse 102; Resp 23; Pulse Ox 100% ; jl7 17:00 BP 150 / 92; Pulse 102; Resp 19; Pulse Ox 100% ; jl7 18:00 BP 169 / 89; Pulse 103; Resp 21; Pulse Ox 100% ; jl7 19:00 BP 164 / 86; Pulse 103; Resp 22; Pulse Ox 99% ; Pain 7/10; jl7 ED Course: 08:15 Patient arrived in ED. em1 08:17 Milvia Pal RN is Primary Nurse. jl7 08:20 Jaylon Brewer MD is Attending Physician. kdr 08:20 EKG done, by ED staff, reviewed by Jaylon Brewer MD. dh3 08:26 Triage completed. jl7 08:28 Arm band placed on right wrist. EKG completed in triage. Results shown to MD. jl7 08:55 Missed attempt(s): 20 gauge in left forearm. Bleeding controlled, band aid applied, jl7 catheter tip intact. 09:00 Missed attempt(s): 20 gauge in left hand. Bleeding controlled, band aid applied, jl7 catheter tip intact. 09:13 Inserted saline lock: 20 gauge in left antecubital area, using aseptic technique. Blood dh3 collected. 09:20 XRAY Chest (1 view) In Process Unspecified. EDMS 09:22 Patient has correct armband on for positive identification. Placed in gown. Bed in low jl7 position. Call light in reach. Side rails up X2. ekg monitor on. Pulse ox on. NIBP on. Warm blanket given. 09:22 Maintain EMS IV. Dressing intact. Good blood return noted. Site clean \T\ dry. Gauge \T\ jl 7 site: 20 right FA. 09:[address] via stretcher. jj2 09:35 CT Chest, Abdomen, Pelvis - W/Contrast In Process Unspecified. EDMS 10:30 Amylase, Serum Sent. dh3 10:30 Ckmb Sent. dh3 10:30 CPK Sent. dh3 10:30 Lactate Sent. dh3 10:30 Lipase Sent. dh3 10:30 Procalcitonin Sent. dh3 12:35 oJ Rodriguez MD is Referral Physician. kdr 12:37 Jo Rodriguez MD is Hospitalizing Provider. kdr 17:05 Urine Microscopic Only Sent. dh3 19:26 No provider procedures requiring assistance completed. Patient admitted, IV remains in jl7 place. intact, No redness/swelling at site. 11/21 07:20 Primary Nurse role handed off by Milvia Pal RN sv Administered Medications: Discontinued: Insulin Drip - (Insulin Regular Human 100 units, NS 0.9% 100 ml) IV at calculated rate continuous; Standard concentration 1unit/ml; Dose for DKA is 0.1 units/kg/hr Discontinued: NS 0.9% 1000 ml IV at 125 ml/hr continuous 11/20 09:10 Drug: Insulin Regular Human 10 units {Co-Signature: rb3 (Annemarie Hendrickson RN).} Route: jl7 IVP; Site: right forearm; 10:30 Follow up: Response: No adverse reaction; Blood sugar is lowered 09:10 Drug: Zofran (Ondansetron) 4 mg Route: IVP; Site: right forearm; jl7 10:26 Follow up: Response: No adverse reaction 09:10 Drug: NS 0.9% 1000 ml Route: IV; Rate: 1 bolus; Site: right forearm; jl7 09:30 Follow up: IV Pause: 11/20/2020 09:30; IV Pause Reason: Patient to CT; . jl7 10:00 Follow up: IV Status: Infusion continued jl7 10:30 Follow up: Response: No adverse reaction; IV Status: Completed infusion; IV Intake: jl7 1000ml 09:10 Drug: NS 0.9% 1000 ml Route: IV; Rate: 125 ml/hr; Site: right forearm; jl7 14:30 Follow up: IV Status: Completed infusion 09:12 Drug: morphine 4 mg Route: IVP; Site: right forearm; jl7 09:30 Follow up: Response: No adverse reaction; Pain is decreased jl7 10:05 Drug: Rocephin - (cefTRIAXone) 1 grams Route: IVPB; Infused Over: 30 mins; Site: right jl7 forearm; 10:08 Follow up: Response: No adverse reaction; IV Status: Completed infusion jl7 10:15 Drug: Insulin Drip - (Insulin Regular Human 100 units, NS 0.9% 100 ml) {Co-Signature: mike rb3 (Annemarie Hendrickson RN).} Route: IV; Rate: calculated rate; Site: right forearm; 12:30 Follow up: IV Status: Completed infusion jl7 14:30 Drug: D5-1/2 NS 1000 ml Route: IV; Rate: 125 ml/hr; Site: right forearm; jl7 15:00 Follow up: IV Status: Infusion continued upon admission jl7 14:35 Drug: morphine 4 mg Route: IVP; Site: right forearm; jl7 15:00 Follow up: Response: No adverse reaction; Pain is decreased jl7 14:40 Drug: Insulin Drip - (Insulin Regular Human 100 units, NS 0.9% 100 ml) {Co-Signature: 7 rb3 (Annemarie Hendrickson RN).} Route: IV; Rate: 2 units/hr; Site: right forearm; 15:00 Follow up: IV Status: Infusion continued upon admission jl7 Intake: 10:30 IV: 1000ml; Total: 1000ml. jl7 Outcome: 12:36 Discharge ordered by MD. kdr 12:38 Decision to Hospitalize by Provider. kdr 19:26 Admitted to ER Hold. Please see [facility] for further documentation. jl7 19:26 Condition: stable 19:26 Discharge instructions given to patient, Instructed on the need for admit, Demonstrated understanding of instructions. 11/21 18:14 Patient left the ED. ph Signatures: Dispatcher [employer] Luann Patel RN Jaylon Le MD MD kdr Jaramillo, Walter Owen em1 Dora Gaitan RN RN ph Leal, Jahala, RN RN jl7 Umm Villarreal formerly [facility] Annemarie Hendrickson RN RN rb3 Annemarie Hendrickson RN rb3 Corrections: (The following items were deleted from the chart) 11/20 10:50 10:47 CORONAVIRUS+[email or web address] drawn and sent. dh3 [facility]
[2020-11-20 13:05] LABS: Potassium 3.6 mmol/L (3.5-5.1)
[2020-11-20] MEDS ORDERED: GLUCAGON 1 MG/VIAL IM PRN (14:20)
[2020-11-20] MEDS ORDERED: D50W 25 GM/50 ML VIAL IV PRN (14:24)
[2020-11-20] MEDS ORDERED: ONDANSETRON 4 MG/2 ML VIAL IV PRN (14:28)
[2020-11-20] MEDS ORDERED: D5 0.45 NS 1,000 ML IV ONE ×2 (14:32→21:29)
[2020-11-20 14:38] LABS: Arterial Blood Carboxyhemoglob 2.2 % (0-1.5); Blood Gas Oxyhemoglobin 93.4 % (94-97); Blood O2 Saturation 96.4 % (92-98.5)
[2020-11-20 15:12] LABS: BUN Blood Urea Nitrogen 27 mg/dL (7-18); Glucose Level 115 mg/dL (74-106); Potassium 3.8 mmol/L (3.5-5.1); Sodium Level 134 mmol/L (136-145)
[2020-11-20 15:13] LABS: Bicarbonate 6 mmol/L (21-32)
[2020-11-20] MEDS: D5 0.45 NS 1,000 ML IV SCH ×2 (16:00→22:40)
[2020-11-20] MEDS ORDERED: ENOXAPARIN 40 MG/0.4 ML SQ SCH (16:00)
[2020-11-20 17:16] LABS: Urine Blood 2+ (NEG); Urine Glucose 1+ (NEG); Urine Protein 3+ (NEG); Urine Specific Gravity 1.025 (1.005-1.030)
[2020-11-20 17:16] LABS: Urine Amorphous Sediment 2+ /HPF (NONE SEEN); Urine Bacteria <20 /HPF (NONE SEEN); Urine Mucus 1+ /HPF (NONE SEEN)
[2020-11-20 19:24] LABS: BUN Blood Urea Nitrogen 26 mg/dL (7-18); Glucose Level 177 mg/dL (74-106); Potassium 4.1 mmol/L (3.5-5.1); Sodium Level 133 mmol/L (136-145); Troponin I < 0.02 ng/mL (0.0-0.045)
[2020-11-20 19:27] LABS: Bicarbonate 12 mmol/L (21-32)
[2020-11-20] MEDS ORDERED: HYDROMORPHONE HCL 0.5 MG/0.5 ML INJ ONE (20:17)
[2020-11-21] MEDS: HYDROMORPHONE HCL 0.5 MG/0.5 ML INJ IV PRN ×4 (00:19→14:55)
[2020-11-21] MEDS ORDERED: HYDROMORPHONE HCL 0.5 MG/0.5 ML INJ ONE ×4 (00:48→14:48)
[2020-11-21 01:02] VITALS: O2SAT 100; BMI 24.3
[2020-11-21 02:02] LABS: BUN Blood Urea Nitrogen 22 mg/dL (7-18); Bicarbonate 17 mmol/L (21-32); Glucose Level 121 mg/dL (74-106); Potassium 3.4 mmol/L (3.5-5.1); Sodium Level 136 mmol/L (136-145)
[2020-11-21] MEDS ORDERED: KCL 20 MEQ/100 mL IVPB 20 MEQ/100 ML BAG IV ONE (03:36)
[2020-11-21] MEDS ORDERED: KCL 20 MEQ/100 mL IVPB 20 MEQ/100 ML BAG IV SCH (05:00)
[2020-11-21] MEDS: D5 0.45 NS 1,000 ML IV SCH (05:20)
[2020-11-21 05:38] LABS: Absolute Lymphocytes (CBC) 0.7 K/uL (0.7-4.9); Basophils % 1.1 % (0-1.3); Hematocrit 38.8 % (39.6-49.0); Lymphocytes % 6.3 % (15.3-44.8); MPV 9.1 fL (7.6-11.3); RBC Red Blood Cell Count 4.06 M/uL (4.33-5.43)
[2020-11-21 06:17] LABS: Phosphorus 0.8 mg/dL (2.5-4.9)
--- NOTE | 2020-11-21 06:21 | EKG ---
Test Date: 2020-11-20 Test Time: 08:08:15 Pile Driving Supervisor: INDER MEASUREMENT RESULTS: Intervals: Rate: 99 GA: 152 QRSD: 82 QT: 372 QTc: 477 [place]: P: 70 GA: 152 QRS: 53 T: 82 INTERPRETIVE STATEMENTS: Normal sinus rhythm Right atrial enlargement Cannot rule out Anteroseptal infarct, age undetermined Abnormal ECG Compared to ECG 07/16/2020 11:29:14 Myocardial infarct finding now present Sinus tachycardia no longer present Electronically Signed On 11-21-20 06:18:11 DEAF TEACHER by Juan Silverman
[2020-11-21 06:33] LABS: Potassium 3.7 mmol/L (3.5-5.1)
[2020-11-21] MEDS ORDERED: POTASSIUM PHOS 30 MM in NA CHLORIDE 0.9% 500 ML IV ONE (06:49)
[2020-11-21] MEDS ORDERED: D5 0.45 NS 1,000 ML IV ONE (06:56)
--- NOTE | 2020-11-21 08:47 | P.HP ---
Certification for Inpatient Patient admitted to: Inpatient With expected LOS: >2 Midnights Patient will require the following post-hospital care: None Practitioner: I am a practitioner with admitting privileges, knowledge of patient current condition, hospital course, and medical plan of care. Services: Services provided to patient in accordance with Admission requirements found in Title 42 Section 412.3 of the Code of Federal Regulations Patient History Date of Service: 11/20/20 Reason for admission: Diabetic ketoacidosis History of Present Illness: Patient is a 55-year-old gentleman who came to the hospital with diabetes. Patient was short of breath and having nausea and vomiting for the last 24 hr. He also was having diarrhea. His clinical symptoms continue did worsen so he came to the hospital. He was diagnose with diabetes and 2016. He was started on insulin in 2018. He denies having a history of diabetic ketoacidosis. Patient is on insulin at home. He has been taking his insulin as prescribed. Patient's nausea and vomiting is improving. Patient still remains significantly acidotic. His bicarb level is 6. Patient is a history of Coronary artery disease. Is imperative that is acidosis is corrected in light of his cardiac history. He will need to be admitted for aggressive therapy of diabetic ketoacidosis. Allergies codeine [Codeine] Allergy (Verified 03/24/16 12:22) Hives/Rash Home Medications: lisinopriL [Prinivil*] 20 mg PO DAILY 01/16/19 Amlodipine [Norvasc*] 10 mg PO DAILY #30 tab 01/19/19 Cyanoco/FA/Pyri [Folbic*] 1 tab PO DAILY #30 tab 01/19/19 Metoprolol Tartrate [Lopressor*] 25 mg PO BID 6AM 6PM #60 tab 01/19/19 Pantoprazole [Protonix Tab*] 40 mg PO DAILYAC #30 tab 01/19/19 Thiamine HCl [Vitamin B-1*] 100 mg PO DAILY #30 tablet 01/19/19 - Past Medical/Surgical History Has patient received pneumonia vaccine in the past: No Diabetic: No -: HTN -: Prior myocardial infarction -: [place] x2 -: skin graft to head - Family History Father Notes: unknown Mother Medical History: Lung disease, Cancer - Social History Smoking Status: Current every day smoker Place of Residence: Home Review of Systems 10-point ROS is otherwise unremarkable Physical Examination - Vital Signs Temperature: 98.5 F Blood Pressure: 156/90 Pulse: 103 Respirations: 18 Pulse Ox (%): 98 - Physical Exam General: Alert, In no apparent distress, Oriented x3 HEENT: Atraumatic, PERRLA, Mucous membr. moist/pink, EOMI, Sclerae nonicteric Neck: Supple, 2+ carotid pulse no bruit, No LAD, Without JVD or thyroid abnormality Respiratory: Clear to auscultation bilaterally, Normal air movement Cardiovascular: Regular rate/rhythm, Normal S1 S2, No murmurs Gastrointestinal: Normal bowel sounds, Soft and benign, Non-distended, No tenderness, No rebound, No guarding Musculoskeletal: No clubbing, No swelling, No tenderness Integumentary: No rashes Neurological: Normal gait, Normal speech, Normal strength at 5/5 x4 extr, Normal tone, Sensation intact, Cranial nerves 3-12 intact, Normal affect Lymphatics: No axilla or inguinal lymphadenopathy - Studies Laboratory Data (last 24 hrs) 11/20/20 12:20: Sodium 134 L, Potassium 3.6, BUN 25 H, Creatinine 1.61 H, Glucose 113 H 11/20/20 10:26: Amylase 59, Lipase 782 H 11/20/20 08:50: APTT 37.9 H 11/20/20 08:50: PT 10.7, INR 0.91 11/20/20 08:50: WBC 18.4 H, Hgb 15.6, Hct 48.8, Plt Count 215 11/20/20 08:50: Sodium 128 L, Potassium 4.8, BUN 25 H, Creatinine 2.04 H, Glucose 429 H*, Magnesium 2.9 H D, Total Bilirubin 0.8, AST 46 H, ALT 70, Alkaline Phosphatase 259 H Microbiology Data (last 24 hrs): 11/20/20 10:37 Blood - Blood Anaerobic Blood Culture - Final Assessment & Plan - Problems (Diagnosis) (1) Diabetic ketoacidosis Current Visit: Yes Status: Acute (2) CAD (coronary artery disease) Current Visit: No Status: Acute Qualifiers: Coronary Disease-Associated Artery/Lesion type: [place] artery [place] vs. transplanted heart: [place] heart Associated angina: without angina Qualified Code(s): I25.10 - Atherosclerotic heart disease of [place] coronary artery without angina pectoris (3) Stented coronary artery Current Visit: No Status: Acute (4) Alcohol abuse Current Visit: No Status: Chronic (5) Hypertension Onset Date: 03/25/16 Current Visit: No Status: Chronic Qualifiers: Hypertension type: essential hypertension Qualified Code(s): I10 - Essential (primary) hypertension (6) Marijuana user Current Visit: No Status: Chronic - Plan 1. IV hydration 2. Insulin drip 3. Accu-Cheks q1h 4. Measure anion gap every 2 hrs 5. Resume diet once anion gap is closed and will resume insulin pump 6. Diabetic education 7. Long-acting insulin once patient able to tolerate diet and at that time will discontinue insulin drip 8. Monitor cardiac status 9. Machine Operator Replanter regarding alcohol cessation Discharge Plan: Home Plan to discharge in: Greater than 2 days - Advance Directives Does patient have a Living Will: No Does patient have a Durable POA for Healthcare: No - Code Status/Comfort Care Code Status Assessed: Yes Code Status: Full Code Critical Care: No Time Spent Managing PTS Care (In Minutes): 45
[2020-11-21] MEDS ORDERED: ENOXAPARIN 40 MG/0.4 ML SQ ONE (08:50)
[2020-11-21] MEDS ORDERED: ONDANSETRON 4 MG/2 ML VIAL ONE (08:57)
[2020-11-21] MEDS ORDERED: CEFTRIAXONE/SWI 1gm 1 GM/10 ML SYR ONE (08:57)
[2020-11-21] MEDS ORDERED: CEFTRIAXONE/SWI 1gm 1 GM/10 ML SYR IVP SCH (09:00)
[2020-11-21 09:32] LABS: BUN Blood Urea Nitrogen 17 mg/dL (7-18); Bicarbonate 18 mmol/L (21-32); Glucose Level 131 mg/dL (74-106); Magnesium 1.9 mg/dL (1.8-2.4); Potassium 3.2 mmol/L (3.5-5.1); Sodium Level 135 mmol/L (136-145)
[2020-11-21] MEDS ORDERED: D50W 25 GM/50 ML SYRINGE IV PRN (10:05)
[2020-11-21] MEDS ORDERED: GLUCAGON 1 MG/VIAL IM PRN ×2 (10:05→13:10)
[2020-11-21] MEDS ORDERED: INSULIN GLARGINE 100 UNITS/ML SQ ONE ×2 (10:07→12:00)
[2020-11-21] MEDS ORDERED: METOPROLOL TARTRATE 5 MG/5 ML INJ IV STA (10:51)
[2020-11-21] MEDS ORDERED: METOPROLOL TARTRATE 5 MG/5 ML INJ IV ONE (12:10)
[2020-11-21 12:27] LABS: Potassium 3.5 mmol/L (3.5-5.1)
[2020-11-21] MEDS ORDERED: D50W 25 GM/50 ML VIAL IV PRN (13:38)
[2020-11-21] MEDS ORDERED: cloNIDine HCL 0.1 MG TAB PO ONE (14:00)
[2020-11-21] MEDS ORDERED: chlordiazePOXIDE HCl 25 MG CAP PO ONE (14:00)
[2020-11-21] MEDS ORDERED: chlordiazePOXIDE HCl 5 MG CAP PO ONE (14:08)
[2020-11-21] MEDS ORDERED: cloNIDine HCL 0.1 MG TAB ONE (14:08)
[2020-11-21] MEDS ORDERED: NA CHLORIDE 0.9% 1,000 ML ONE (14:48)
[2020-11-21 15:40] LABS: Potassium 3.6 mmol/L (3.5-5.1)
[2020-11-21] MEDS ORDERED: NA CHLORIDE 0.9% 1,000 ML IV SCH (16:00)
[2020-11-21 16:08] VITALS: BP 130/77; TEMP 97.2
[2020-11-21] MEDS ORDERED: INSULIN -REGULAR HUMAN 50 UNIT/0.5 ML ML SQ SCH (16:30)
--- NOTE | 2020-11-21 16:49 | P.DS ---
Discharge Date: 11/21/20 Disposition: ROUTINE DISCHARGE Discharge Condition: GOOD Reason for Admission: Diabetic ketoacidosis - Problems (1) Diabetic ketoacidosis Current Visit: Yes Status: Acute (2) CAD (coronary artery disease) Current Visit: No Status: Acute Qualifiers: Coronary Disease-Associated Artery/Lesion type: [place] artery [place] vs. transplanted heart: [place] heart Associated angina: without angina Qualified Code(s): I25.10 - Atherosclerotic heart disease of [place] coronary artery without angina pectoris (3) Stented coronary artery Current Visit: No Status: Acute (4) Alcohol abuse Current Visit: No Status: Chronic (5) Hypertension Onset Date: 03/25/16 Current Visit: No Status: Chronic Qualifiers: Hypertension type: essential hypertension Qualified Code(s): I10 - Essential (primary) hypertension (6) Marijuana user Current Visit: No Status: Chronic Brief History of Present Illness: Patient is a 55-year-old gentleman who came to the hospital with diabetes. Patient was short of breath and having nausea and vomiting for the last 24 hr. He also was having diarrhea. His clinical symptoms continue did worsen so he came to the hospital. He was diagnose with diabetes and 2016. He was started on insulin in 2018. He denies having a history of diabetic ketoacidosis. Patient is on insulin at home. He has been taking his insulin as prescribed. Patient's nausea and vomiting is improving. Patient still remains significantly acidotic. His bicarb level is 6. Patient is a history of Coronary artery disease. Is imperative that is acidosis is corrected in light of his cardiac history. He will need to be admitted for aggressive therapy of diabetic ketoacidosis. Vital Signs/Physical Exam: Temp Pulse Resp BP Pulse Ox 97.2 F 83 18 130/77 98 11/21/20 16:00 11/21/20 16:00 11/21/20 16:00 11/21/20 16:00 11/21/20 16:00 Laboratory Data at Discharge: WBC 10.6 K/uL (4.3-10.9) D 11/21/20 05:15 Hgb 13.1 g/dL (13.6-17.9) L D 11/21/20 05:15 Hct 38.8 % (39.6-49.0) L D 11/21/20 05:15 Plt Count 149 K/uL (152-406) L D 11/21/20 05:15 PT 10.7 SECONDS (9.5-12.5) 11/20/20 08:50 INR 0.91 11/20/20 08:50 APTT 37.9 SECONDS (24.3-36.9) H 11/20/20 08:50 Sodium 135 mmol/L (136-145) L 11/21/20 15:17 Potassium 3.6 mmol/L (3.5-5.1) 11/21/20 15:17 BUN 14 mg/dL (7-18) 11/21/20 15:17 Creatinine 0.88 mg/dL (0.55-1.3) 11/21/20 15:17 Glucose 194 mg/dL (74-106) H 11/21/20 15:17 Phosphorus 0.8 mg/dL (2.5-4.9) L* 11/21/20 05:15 Magnesium 1.9 mg/dL (1.8-2.4) 11/21/20 09:11 Total Bilirubin 0.8 mg/dL (0.2-1.0) 11/20/20 08:50 AST 46 U/L (15-37) H 11/20/20 08:50 ALT 70 U/L (12-78) 11/20/20 08:50 Alkaline Phosphatase 259 U/L (45-117) H 11/20/20 08:50 Troponin I < 0.02 ng/mL (0.0-0.045) 11/20/20 18:39 Triglycerides 152 mg/dL (<150) H 11/21/20 05:15 Cholesterol 203 mg/dL (<200) H 11/21/20 05:15 HDL Cholesterol 64 mg/dL (40-60) H 11/21/20 05:15 Cholesterol/HDL Ratio 3.17 11/21/20 05:15 Amylase 59 U/L (25-115) 11/20/20 10:26 Lipase 70 U/L (73-393) L 11/21/20 15:17 Home Medications: lisinopriL [Prinivil*] 20 mg PO DAILY 01/16/19 Amlodipine [Norvasc*] 10 mg PO DAILY #30 tab 01/19/19 Cyanoco/FA/Pyri [Folbic*] 1 tab PO DAILY #30 tab 01/19/19 Metoprolol Tartrate [Lopressor*] 25 mg PO BID 6AM 6PM #60 tab 01/19/19 Pantoprazole [Protonix Tab*] 40 mg PO DAILYAC #30 tab 01/19/19 Thiamine HCl [Vitamin B-1*] 100 mg PO DAILY #30 tablet 01/19/19 Chlordiazepoxide HCl [Librium] 10 mg PO TID #40 capsule 11/21/20 Metoprolol Tartrate [Lopressor] 50 mg PO BID #60 tab 11/21/20 metroNIDAZOLE [Flagyl] 500 mg PO Q6H #20 tablet 11/21/20 traMADol HCL [Ultram] 50 mg PO Q8H PRN #30 tab 11/21/20 New Medications: metroNIDAZOLE [Flagyl] 500 mg PO Q6H #20 tablet Chlordiazepoxide HCl [Librium] 10 mg PO TID #40 capsule Metoprolol Tartrate [Lopressor] 50 mg PO BID #60 tab traMADol HCL [Ultram] 50 mg PO Q8H PRN #30 tab PRN Reason: Pain Patient Discharge Instructions: OK TO DC IV AND DC HOME. FOLLOW-UP WITH PRIMARY CARE PROVIDER IN 1-2 WEEKS. FOLLOW-UP WITH Gastroenterology IN 1-2 WEEKS. RETURN TO THE ER IF symptoms worsen. CALL or TEXT DR. DACOSTA AT [phone] IF ANY QUESTIONS REGARDING HOSPITAL STAY. PLEASE CALL THE FLOOR AT [phone] IF ANY MEDICATION OR NURSING QUESTIONS. Diet: AHA Activity: Fall precautions Followup: Unknown,U [Primary Care Provider] -
--- NOTE | 2020-11-21 16:53 | P.DS ---
Discharge Date: 11/21/20 Disposition: ROUTINE DISCHARGE Discharge Condition: GOOD Reason for Admission: Diabetic ketoacidosis - Problems (1) Diabetic ketoacidosis Status: Acute (2) CAD (coronary artery disease) Status: Acute Qualifiers: Coronary Disease-Associated Artery/Lesion type: [place] artery [place] vs. transplanted heart: [place] heart Associated angina: without angina Qualified Code(s): I25.10 - Atherosclerotic heart disease of [place] coronary artery without angina pectoris (3) Stented coronary artery Status: Acute (4) Alcohol abuse Status: Chronic (5) Hypertension Onset Date: 03/25/16 Status: Chronic Qualifiers: Hypertension type: essential hypertension Qualified Code(s): I10 - Essential (primary) hypertension (6) Marijuana user Status: Chronic Brief History of Present Illness: Patient is a 55-year-old gentleman who came to the hospital with diabetes. Patient was short of breath and having nausea and vomiting for the last 24 hr. He also was having diarrhea. His clinical symptoms continue did worsen so he came to the hospital. He was diagnose with diabetes and 2016. He was started on insulin in 2018. He denies having a history of diabetic ketoacidosis. Patient is on insulin at home. He has been taking his insulin as prescribed. Patient's nausea and vomiting is improving. Patient still remains significantly acidotic. His bicarb level is 6. Patient is a history of Coronary artery disease. Is imperative that is acidosis is corrected in light of his cardiac history. He will need to be admitted for aggressive therapy of diabetic ketoacidosis. Hospital Course: Patient had done well during hospital stay. Blood sugars are corrected. Patient has been educated regarding wound care in blood sugars closely. Patient is stable for discharge home. Vital Signs/Physical Exam: Temp Pulse Resp BP Pulse Ox 97.2 F 83 18 130/77 98 11/21/20 16:00 11/21/20 16:00 11/21/20 16:00 11/21/20 16:00 11/21/20 16:00 General: Alert, In no apparent distress, Oriented x3 Laboratory Data at Discharge: WBC 10.6 K/uL (4.3-10.9) D 11/21/20 05:15 Hgb 13.1 g/dL (13.6-17.9) L D 11/21/20 05:15 Hct 38.8 % (39.6-49.0) L D 11/21/20 05:15 Plt Count 149 K/uL (152-406) L D 11/21/20 05:15 PT 10.7 SECONDS (9.5-12.5) 11/20/20 08:50 INR 0.91 11/20/20 08:50 APTT 37.9 SECONDS (24.3-36.9) H 11/20/20 08:50 Sodium 135 mmol/L (136-145) L 11/21/20 15:17 Potassium 3.6 mmol/L (3.5-5.1) 11/21/20 15:17 BUN 14 mg/dL (7-18) 11/21/20 15:17 Creatinine 0.88 mg/dL (0.55-1.3) 11/21/20 15:17 Glucose 194 mg/dL (74-106) H 11/21/20 15:17 Phosphorus 0.8 mg/dL (2.5-4.9) L* 11/21/20 05:15 Magnesium 1.9 mg/dL (1.8-2.4) 11/21/20 09:11 Total Bilirubin 0.8 mg/dL (0.2-1.0) 11/20/20 08:50 AST 46 U/L (15-37) H 11/20/20 08:50 ALT 70 U/L (12-78) 11/20/20 08:50 Alkaline Phosphatase 259 U/L (45-117) H 11/20/20 08:50 Troponin I < 0.02 ng/mL (0.0-0.045) 11/20/20 18:39 Triglycerides 152 mg/dL (<150) H 11/21/20 05:15 Cholesterol 203 mg/dL (<200) H 11/21/20 05:15 HDL Cholesterol 64 mg/dL (40-60) H 11/21/20 05:15 Cholesterol/HDL Ratio 3.17 11/21/20 05:15 Amylase 59 U/L (25-115) 11/20/20 10:26 Lipase 70 U/L (73-393) L 11/21/20 15:17 Home Medications: lisinopriL [Prinivil*] 20 mg PO DAILY 01/16/19 Amlodipine [Norvasc*] 10 mg PO DAILY #30 tab 01/19/19 Metoprolol Tartrate [Lopressor*] 25 mg PO BID 6AM 6PM #60 tab 01/19/19 Pantoprazole [Protonix Tab*] 40 mg PO DAILYAC #30 tab 01/19/19 Thiamine HCl [Vitamin B-1*] 100 mg PO DAILY #30 tablet 01/19/19 Chlordiazepoxide HCl [Librium] 10 mg PO TID #40 capsule 11/21/20 Cyanoco/FA/Pyri [Folbic*] 1 tab PO DAILY #30 tab 11/21/20 Insulin Glargine Human [Lantus] 20 unit SQ BEDTIME #2 vial 11/21/20 Metoprolol Tartrate [Lopressor] 50 mg PO BID #60 tab 11/21/20 metroNIDAZOLE [Flagyl] 500 mg PO Q6H #20 tablet 11/21/20 traMADol HCL [Ultram] 50 mg PO Q8H PRN #30 tab 11/21/20 New Medications: metroNIDAZOLE [Flagyl] 500 mg PO Q6H #20 tablet Cyanoco/FA/Pyri [Folbic*] 1 tab PO DAILY #30 tab Insulin Glargine Human [Lantus] 20 unit SQ BEDTIME #2 vial Chlordiazepoxide HCl [Librium] 10 mg PO TID #40 capsule Metoprolol Tartrate [Lopressor] 50 mg PO BID #60 tab traMADol HCL [Ultram] 50 mg PO Q8H PRN #30 tab PRN Reason: Pain Patient Discharge Instructions: OK TO DC IV AND DC HOME. FOLLOW-UP WITH PRIMARY CARE PROVIDER IN 1-2 WEEKS. FOLLOW-UP WITH Gastroenterology IN 1-2 WEEKS. RETURN TO THE ER IF symptoms worsen. CALL or TEXT DR. DACOSTA AT [phone] IF ANY QUESTIONS REGARDING HOSPITAL STAY. PLEASE CALL THE FLOOR AT [phone] IF ANY MEDICATION OR NURSING QUESTIONS. Diet: AHA Activity: Fall precautions Followup: Sanjay Antunez MD [ACTIVE - CAN ADMIT] - Natan Banks MD [ASSOCIATE-ACTIVE - CAN ADMIT] - Unknown,U [Primary Care Provider] - Time spent managing pt's care (in minutes): 35
[2020-11-21] MEDS ORDERED: INSULIN -REGULAR HUMAN 50 UNIT/0.5 ML ML ONE (17:48)
== END 2020-11-21 18:10 | disposition home or self-care (01) | DRG 639 ==
LOC: ER 08:01 → ERHOLD 14:28
PROVIDERS: ADMIT Hospitalist; ATTEND Hospitalist
DX: E11.10 Type 2 diabetes mellitus with ketoacidosis without coma (principal); F10.10 Alcohol abuse, uncomplicated; I25.10 Atherosclerotic heart disease of native coronary artery without angina pectoris; I25.2 Old myocardial infarction; I10 Essential (primary) hypertension; F17.210 Nicotine dependence, cigarettes, uncomplicated; Z79.4 Long term (current) use of insulin; Z79.899 Other long term (current) drug therapy; Z88.5 Allergy status to narcotic agent; Z95.5 Presence of coronary angioplasty implant and graft; Z20.822 Contact with and (suspected) exposure to COVID-19
CPT/HCPCS: 36415; 71045; 71260; 74177; 80048; 80061; 80076; 81003; 81015; 82010; 82150; 82550; 82553; 82565; 82805; 82947; 83605; 83690; 83735; 83880; 84100; 84145; 84484; 85025; 85610; 85730; 87040; 93005; 96361; 96365; 96366; 96375; 99285; J0696; J1170; J1650; J1815; J2405; J3480; J7030; J7040; J7799; Q9967; U0003

== ENCOUNTER 2024-10-02 20:34 | Emergency (ER) | payer SELFPAY ==
[2024-10-02] MEDS ORDERED: KETOROLAC 30 MG/ML INJ ONE (21:01)
[2024-10-02] MEDS ORDERED: CEFTRIAXONE 1000 MG/VIAL ONE (21:01)
--- NOTE | 2024-10-02 21:30 | EDPHYS ---
Physician Documentation [facility] Name: Tj Pearce Age: 59 yrs Sex: Male : 1965 Arrival Date: 10/02/2024 Time: 20:34 Bed 14 Private MD: ED Physician Ollie Baker HPI: 10/02 20:51 This 59 yrs old White Male presents to ER via EMS with complaints of right ear pain. bo1 20:51 Seen PCP yesterday and got Amoxil Rx but cannot fill till next week. Onset: The bo1 symptoms/episode began/occurred gradually, 3 day(s) ago, and became persistent today, Pt called 911 due to pain to the right ear, post toothache dx. Pt dx with toothache, he has "pain" to the right ear and hurts to move the ear. Historical: - Allergies: 20:51 Codeine; rg5 - PMHx: 20:51 Diabetes - IDDM; Hypertension; Myocardial infarction; High Cholesterol; CAD; rg5 - Immunization history:: Adult Immunizations up to date. - Infectious Disease History:: Denies. - Social history:: Smoking status: Patient reports the use of cigarette tobacco products, smokes one-half pack cigarettes per day. ROS: 20:53 Constitutional: Negative for fever, chills, and weight loss bo1 20:53 Constitutional: Negative for fever, No dental pain, 20:53 ENT: Positive for ear pain, 20:53 Neck: Negative for pain at rest, stiffness, 20:53 Cardiovascular: Negative for chest pain, 20:53 Respiratory: Negative for shortness of breath, 20:53 Abdomen/GI: Negative for abdominal pain, nausea and vomiting, 20:53 Skin: Negative for rash, Exam: 21:22 Constitutional: This is a well developed, well nourished patient who is awake, alert, bo1 and in mild acute distress from the ear pain 21:22 Head/face: Exam is negative for acute changes, obvious evidence of injury or deformity, 21:22 ENT: External ear(s): pain with movement, that is moderate, of the pinna of right ear and right ear lobe, 21:24 ENT: Ear canal(s): erythema, that is moderate, of the right canal, No FB or bleeding, bo1 swelling, that is minimal, of the right canal, TM's: erythema, that is mild, on the right, 21:24 Neck: External neck: is normal, no acute changes, rash, is not appreciated, swelling, is not appreciated, Vital Signs: 20:35 BP 175 / 75; Pulse 91; Resp 18; Temp 98(O); Pulse Ox 97% on R/A; Weight 70.31 kg; rg5 Height 5 ft. 11 in. ; Pain 10/10; 20:54 BP 174 / 75; Pulse 91; Resp 18; Temp 98; Pulse Ox 97% ; Pain 10/10; rg5 22:35 BP 140 / 77; Pulse 74; Resp 17 S; Pulse Ox 100% on R/A; ha1 20:35 Body Mass Index 21.62 (70.31 kg, 180.34 cm) rg5 20:35 Pain Scale: Adult rg5 20:54 Pain Scale: Adult rg5 MDM: 20:45 Medical Screening Exam initiated bo1 21:27 Differential Diagnosis External otitis and mild media. Data reviewed: vital signs. ED bo1 course: Pt problem is pain mgmt and not being able to fill Rx. Administered Medications: 21:06 Drug: Rocephin (cefTRIAXone) IM 1 grams IM once Route: IM; Site: left gluteus; rg5 22:00 Follow up: Response: No adverse reaction ha1 21:12 Drug: Ketorolac IM 60 mg IM once Route: IM; Site: left gluteus; rg5 22:00 Follow up: Response: No adverse reaction; Marked relief of symptoms ha1 Disposition Summary: 10/02/24 21:29 Discharge Ordered Notes: Location: Home bo1 Problem: an acute exacerbation bo1 Symptoms: have improved bo1 Condition: Stable bo1 Diagnosis - Otalgia, right ear bo1 - Otitis externa in other diseases classified elsewhere, right ear bo1 Followup: bo1 - With: Private Physician - When: Upon discharge from the Emergency Department - Reason: Recheck today's complaints, Continuance of care Discharge Instructions: - Discharge Summary Sheet bo1 - Otitis Externa, [id number] bo1 - Ear Drops, Adult, [id number] bo1 Forms: - Medication Reconciliation Form bo1 - Antibiotic Education bo1 - Prescription Opioid Use bo1 - Patient Portal Instructions bo1 - Leadership Thank You Letter bo1 Prescriptions: - ketorolac 10 mg Oral tablet - take 1 tablet ORAL route every 6 hours for 5 days; 15 tablet; Refills: 0, bo1 Product Selection Permitted - Cortisporin-TC 3.3-3-10-0.5 mg/mL Otic drops, suspension - instill 4 drops OTIC route every 6 hours for 7 days; 1 unit; Refills: 0, bo1 Product Selection Permitted Signatures: Rand Ferris RN RN ha1 Ollie Baker MD MD bo1 Fausto Chavira RN RN rg5
--- NOTE | 2024-10-02 21:30 | ER ---
Nurse's Notes [facility] Name: Tj Pearce Age: 59 yrs Sex: Male : 1965 Arrival Date: 10/02/2024 Time: 20:34 Bed 14 Private MD: Diagnosis: Otalgia, right ear;Otitis externa in other diseases classified elsewhere, right ear Presentation: 10/02 20:35 Chief complaint: EMS states: started last Tuesday with runny nose \T\ pain started last rgTuesday and getting worse. Also complain of neck pain \T\ headache. 20:35 Coronavirus screen: Client denies travel out of the [place] in the last 14 days. Ebola rg5 Screen: Patient negative for fever greater than or equal to 101.5 degrees Fahrenheit, and additional compatible Ebola Virus Disease symptoms. Initial Sepsis Screen: Does the patient meet any 2 criteria? No. Patient's initial sepsis screen is negative. Does the patient have a suspected source of infection? No. Patient's initial sepsis screen is negative. Risk Assessment: Do you want to hurt yourself or someone else? Patient reports no desire to harm self or others. Onset of symptoms was October 02, 2024. Care prior to arrival: Medication(s) given: Normal saline infusion, 500 mL, IV initiated. 20 GA, in the left forearm, Glucose check: 379. 20:35 Method Of Arrival: EMS: [employer] [facility] rg5 20:35 Acuity: SONDRA 3 rg5 Triage Assessment: 20:51 General: Appears uncomfortable, Behavior is calm, cooperative. Pain: Complains of pain rg5 in right ear. EENT:. Neuro: Level of Consciousness is awake, alert, obeys commands. Cardiovascular: Patient's skin is warm and dry. Respiratory: Airway is patent Trachea midline Respiratory effort is even, unlabored, Respiratory pattern is regular, symmetrical. GI: Abdomen is flat, non-distended. : No signs and/or symptoms were reported regarding the genitourinary system. Derm: Skin is intact, Skin is dry, Skin is normal. Musculoskeletal: Circulation, motion, and sensation intact. Capillary refill < 3 seconds. Historical: - Allergies: 20:51 Codeine; rg5 - PMHx: 20:51 Diabetes - IDDM; Hypertension; Myocardial infarction; High Cholesterol; CAD; rg5 - Immunization history:: Adult Immunizations up to date. - Infectious Disease History:: Denies. - Social history:: Smoking status: Patient reports the use of cigarette tobacco products, smokes one-half pack cigarettes per day. Screenin:54 [facility] ED Fall Risk Assessment (Adult) History of falling in the last 3 months, rg5 including since admission No falls in past 3 months (0 pts) Confusion or Disorientation No (0 pts) Intoxicated or Sedated No (0 pts) Impaired Gait No (0 pts) Mobility Assist Device Used No (0 pt) Altered Elimination No (0 pt) Score/Fall Risk Level 0 - 2 = Low Risk Oriented to surroundings, Maintained a safe environment, Hourly rounding (assess needs \T\ fall precautionary measures) done. Abuse screen: Denies threats or abuse. Nutritional screening: No deficits noted. Tuberculosis screening: No symptoms or risk factors identified. Assessment: 20:54 Reassessment: see triage assesssment. rg5 22:35 Reassessment: Patient and/or family updated on plan of care and expected duration. Pain ha1 level reassessed. Patient is alert, oriented x 3, equal unlabored respirations, skin warm/dry/pink. Patient states feeling better. Patient states symptoms have improved. Vital Signs: 20:35 BP 175 / 75; Pulse 91; Resp 18; Temp 98(O); Pulse Ox 97% on R/A; Weight 70.31 kg; rg5 Height 5 ft. 11 in. ; Pain 10/10; 20:54 BP 174 / 75; Pulse 91; Resp 18; Temp 98; Pulse Ox 97% ; Pain 10/10; rg5 22:35 BP 140 / 77; Pulse 74; Resp 17 S; Pulse Ox 100% on R/A; ha1 20:35 Body Mass Index 21.62 (70.31 kg, 180.34 cm) rg5 20:35 Pain Scale: Adult rg5 20:54 Pain Scale: Adult rg5 ED Course: 20:35 Patient arrived in ED. kmf 20:38 Fausto Chavira, DIOGO is Primary Nurse. rg5 20:45 Ollie Baker MD is Attending Physician. bo1 20:51 Triage completed. rg5 20:51 Arm band placed on right wrist. rg5 20:54 Patient has correct armband on for positive identification. Bed in low position. Call rg5 light in reach. Side rails up X 1. Door closed. Noise minimized. Verbal reassurance given. 20:54 No provider procedures requiring assistance completed. Maintain EMS IV. Dressing rg5 intact. IV is patent, is intact, Flushed left forearm with 5 ml normal saline. 22:36 IV discontinued, intact, bleeding controlled, No redness/swelling at site. Pressure ha1 dressing applied. Administered Medications: 21:06 Drug: Rocephin (cefTRIAXone) IM 1 grams IM once Route: IM; Site: left gluteus; rg5 22:00 Follow up: Response: No adverse reaction ha1 21:12 Drug: Ketorolac IM 60 mg IM once Route: IM; Site: left gluteus; rg5 22:00 Follow up: Response: No adverse reaction; Marked relief of symptoms ha1 Medication: 20:54 VIS not applicable for this client. rg5 Outcome: 21:29 Discharge ordered by . bo1 22:36 Discharged to home ambulatory, ha1 22:36 Condition: stable 22:36 Discharge instructions given to patient, Instructed on discharge instructions, follow up and referral plans. medication usage, Demonstrated understanding of instructions, follow-up care, medications, Prescriptions given X 2, 22:37 Patient left the ED. ha1 Signatures: Rand Ferris RN RN ha1 Dena Strauss [facility] Ollie Baker MD MD bo1 Fausto Chavira RN RN rg5
[2024-10-03 06:17] VITALS: TEMP 98
[2024-10-03 06:19] VITALS: BP 140/77; O2SAT 100
== END 2024-10-02 22:37 | disposition home or self-care (01) ==
LOC: ER 20:34
DX: H60.91 Unspecified otitis externa, right ear (principal)
CPT/HCPCS: 96372; 99284; J0696

== ENCOUNTER 2025-08-21 14:07 | Emergency (ER) | payer SELFPAY ==
[2025-08-21] MEDS ORDERED: CYCLOBENZAPRINE 10 MG TAB ONE (14:46)
[2025-08-21] MEDS ORDERED: KETOROLAC 30 MG/ML INJ ONE (14:49)
[2025-08-21 15:30] LABS: Anion Gap 10.8 mEq/L (5.0-15.0); BUN Blood Urea Nitrogen 23.0 mg/dL (7-18); Magnesium 2.0 mg/dL (1.6-2.4); Potassium 3.8 mEq/L (3.5-5.1)
[2025-08-21 15:34] LABS: Glucose Level 480.0 mg/dL (74-106)
[2025-08-21] MEDS ORDERED: NA CHLORIDE 0.9% 1,000 ML ONE (16:28)
[2025-08-21] MEDS ORDERED: INSULIN REGULAR (HUMAN) 100 UNIT/ML ONE (16:28)
--- NOTE | 2025-08-21 17:24 | EDPHYS ---
Physician Documentation [facility] Name: Tj Pearce Age: 60 yrs Sex: Male : 1965 Arrival Date: 08/21/2025 Time: 14:07 Bed 11 Private MD: ED Physician Dino Valenzuela HPI: 08/21 15:55 This 60 yrs old Male presents to ER via Ambulatory with complaints of Leg Pain. kb 15:55 Patient is a 60-year-old male who presents for neuropathy that is chronic and muscle kb cramps in the legs that started a few weeks ago. States he is on gabapentin for the neuropathy. States he came in today for the muscle cramps because he was tired of dealing with it.. Historical: - Allergies: 14:18 Codeine; dd2 - PMHx: 14:18 CAD; Diabetes - IDDM; High Cholesterol; Hypertension; Myocardial infarction; NEUROPATHY dd2 (Myocardial infarction); - PSHx: 14:18 SKIN GRAFT TO HEAD (Myocardial infarction); dd2 - Social history:: Smoking status: Patient reports the use of cigarette tobacco products, smokes one-half pack cigarettes per day. ROS: 15:55 Constitutional: As per HPI kb Exam: 15:55 Constitutional: This is a well developed, well nourished patient who is awake, alert, kb and in no acute distress. Head/Face: Normocephalic, atraumatic. ENT: Moist Mucous membranes Cardiovascular: Regular rate Respiratory: Respirations even and unlabored. No increased work of breathing. Talking in full sentences Skin: Warm, dry with normal turgor. Normal color. MS/ Extremity: Pulses equal, no cyanosis. Neurovascular intact. Full, normal range of motion. Neuro: Awake and alert, GCS 15, oriented to person, place, time, and situation. Vital Signs: 14:14 BP 115 / 75; Pulse 95; Resp 16; Temp 98.4; Pulse Ox 98% on R/A; Weight 79.38 kg; Pain dd2 9/10; 16:33 BP 125 / 79; Pulse 71; Resp 16; Pulse Ox 98% on R/A; jb4 17:40 BP 109 / 59; Pulse 76; Resp 16; Pulse Ox 98% on R/A; jb4 14:14 Pain Scale: Adult dd2 MDM: 14:22 Medical Screening Exam initiated kb 17:14 Differential diagnosis: Neuropathy, muscle spasms, abnormal electrolytes, dehydration, kb hyperglycemia. Data reviewed: vital signs, nurses notes. Counseling: I had a detailed discussion with the patient and/or guardian regarding the historical points, exam findings, and any diagnostic results supporting the discharge/admit diagnosis, lab results, the need for outpatient follow up, a family practitioner, to return to the emergency department if symptoms worsen or persist or if there are any questions or concerns that arise at home. 08/21 14:48 Order name: BMP; Complete Time: 15:35 kb 08/21 14:48 Order name: Magnesium; Complete Time: 15:35 kb 08/21 16:35 Order name: Glucose, Ancillary Testing; Complete Time: 16:35 EDMS 08/21 17:37 Order name: Glucose, Ancillary Testing; Complete Time: 17:37 EDMS 08/21 14:56 Order name: IV Start; Complete Time: 15:00 ll1 Administered Medications: 14:56 Drug: Cyclobenzaprine PO 10 mg PO once Route: PO; ll1 16:18 Follow up: Response: No adverse reaction jb4 15:09 Drug: Ketorolac IVP 15 mg IVP once Route: IVP; Site: right antecubital; jb4 16:18 Follow up: Response: No adverse reaction jb4 16:33 Drug: NS 0.9% IV 1000 ml IV at 1000 ml once; to be given as a bolus over 60 minutes jb4 Route: IV; Rate: 1000 ml; Site: right antecubital; 16:33 Drug: Insulin Regular Human IVP 10 units IVP once {Co-Signature: ll1 (Arminda Ribeiro RN).} Route: IVP; Site: right antecubital; Disposition: 08/22 07:31 Co-signature as Attending Physician, Dino Valenzuela MD I agree with the assessment and yee plan of care. Disposition Summary: 08/21/25 17:23 Discharge Ordered Notes: Location: Home kb Condition: Stable kb Diagnosis - Muscle spasm kb - Neuropathy kb - Hyperglycemia, unspecified kb Followup: kb - With: Emergency Department - When: As needed - Reason: Worsening of condition Followup: kb - With: Private Physician - When: 2 - 3 days - Reason: Recheck today's complaints, Continuance of care, Re-evaluation by your physician Discharge Instructions: - Discharge Summary Sheet kb - Peripheral Neuropathy kb - Muscle Cramps and Spasms, [id number] kb Forms: - Medication Reconciliation Form kb - Antibiotic Education kb - Prescription Opioid Use kb - Patient Portal Instructions kb - Leadership Thank You Letter kb Prescriptions: - Cyclobenzaprine 10 mg Oral tablet - take 1 tablet ORAL route every 8 hours As needed; 21 tablet; Refills: 0, kb Product Selection Permitted Signatures: Dispatcher [employer] EDDorota Lehman, CREDIT REPORT CHECKER-C CREDIT REPORT CHECKER-Dino Cook MD MD cha Bryson, James RN RN jb4 Arminda Ribeiro RN RN ll1 HAYDEN LOPES RN RN dd2 Arminda Ribeiro RN ll1
--- NOTE | 2025-08-21 17:24 | ER ---
Nurse's Notes [facility] Name: Tj Pearce Age: 60 yrs Sex: Male : 1965 Arrival Date: 08/21/2025 Time: 14:07 Bed 11 Private MD: Diagnosis: Muscle spasm;Neuropathy;Hyperglycemia, unspecified Presentation: 08/21 14:14 Chief complaint: Patient states: HE HAS HAD NEUROPATHY FOR SEVERAL YEARS AND HAS dd2 CONSTANT BURNING. REPORTS THE MUSCLES IN HIS LEGS ARE TIGHTENING, CAUSING GOLDIE HORSES AND MAKING IT DIFFICULT TO WALK X 2 MONTHS. Coronavirus screen: At this time, the client does not indicate any symptoms associated with coronavirus-19. Ebola Screen: No symptoms or risks identified at this time. Initial Sepsis Screen: Does the patient meet any 2 criteria? No. Patient's initial sepsis screen is negative. Does the patient have a suspected source of infection? No. Patient's initial sepsis screen is negative. Risk Assessment: Do you want to hurt yourself or someone else? Patient reports no desire to harm self or others. Onset of symptoms is unknown. 14:14 Method Of Arrival: Ambulatory dd2 14:14 Acuity: SONDRA 3 dd2 Triage Assessment: 14:18 General: Appears in no apparent distress. uncomfortable, Behavior is calm, cooperative, dd2 appropriate for age. Pain: Complains of pain in right leg and left leg Pain currently is 9 out of 10 on a pain scale. Musculoskeletal: Circulation, motion, and sensation intact. Range of motion: intact in all extremities, Reports pain in right leg and left leg. Historical: - Allergies: 14:18 Codeine; dd2 - PMHx: 14:18 CAD; Diabetes - IDDM; High Cholesterol; Hypertension; Myocardial infarction; NEUROPATHY dd2 (Myocardial infarction); - PSHx: 14:18 SKIN GRAFT TO HEAD (Myocardial infarction); dd2 - Social history:: Smoking status: Patient reports the use of cigarette tobacco products, smokes one-half pack cigarettes per day. Screenin:12 [facility] ED Fall Risk Assessment (Adult) History of falling in the last 3 months, jb4 including since admission No falls in past 3 months (0 pts) Confusion or Disorientation No (0 pts) Intoxicated or Sedated No (0 pts) Impaired Gait No (0 pts) Mobility Assist Device Used No (0 pt) Altered Elimination No (0 pt) Score/Fall Risk Level 0 - 2 = Low Risk Oriented to surroundings, Maintained a safe environment. Abuse screen: Denies threats or abuse. Nutritional screening: No deficits noted. Tuberculosis screening: No symptoms or risk factors identified. Assessment: 15:12 General: Appears in no apparent distress. uncomfortable, Behavior is calm, cooperative, jb4 appropriate for age. Pain: Complains of pain in right foot and left foot Pain does not radiate. Pain currently is 9 out of 10 on a pain scale. Quality of pain is described as burning. Neuro: Level of Consciousness is awake, alert, obeys commands, Oriented to person, place, time, situation. Cardiovascular: Patient's skin is warm and dry. Respiratory: Airway is patent Respiratory effort is even, unlabored, Respiratory pattern is regular, symmetrical. Derm: Skin is intact, Skin is pink, warm \T\ dry. Musculoskeletal: Circulation, motion, and sensation intact. Range of motion: intact in all extremities. 16:19 Reassessment: Patient appears in no apparent distress at this time. Patient and/or jb4 family updated on plan of care and expected duration. Pain level reassessed. Patient is alert, oriented x 3, equal unlabored respirations, skin warm/dry/pink. 17:19 Reassessment: Patient appears in no apparent distress at this time. Patient and/or jb4 family updated on plan of care and expected duration. Pain level reassessed. Patient is alert, oriented x 3, equal unlabored respirations, skin warm/dry/pink. Vital Signs: 14:14 BP 115 / 75; Pulse 95; Resp 16; Temp 98.4; Pulse Ox 98% on R/A; Weight 79.38 kg; Pain dd2 9/10; 16:33 BP 125 / 79; Pulse 71; Resp 16; Pulse Ox 98% on R/A; jb4 17:40 BP 109 / 59; Pulse 76; Resp 16; Pulse Ox 98% on R/A; jb4 14:14 Pain Scale: Adult dd2 ED Course: 14:12 Patient arrived in ED. im 14:18 Triage completed. dd2 14:18 Arm band placed on right wrist. dd2 14:22 Dor[facility] Severino [facility]C [facility] kb 14:22 Dino Valenzuela MD is Attending Physician. kb 15:06 Initial lab(s) drawn, by collaborating supervising physician, sent to lab. Inserted saline lock: 20 gauge in right ts3 antecubital area, using aseptic technique. Blood collected. Flushed with 10 mL NS. 15:09 David Schroeder, RN is Primary Nurse. jb4 15:12 Patient has correct armband on for positive identification. Bed in low position. Call jb4 light in reach. Side rails up X 1. Provided Education on: plan of care. 15:12 No provider procedures requiring assistance completed. jb4 15:34 Notified Nurse Practitioner and/or Physician Clerk Typist of a critical lab result(s), ll1 glucose 480. 17:40 IV discontinued, intact, bleeding controlled, No redness/swelling at site. Pressure jb4 dressing applied. Administered Medications: 14:56 Drug: Cyclobenzaprine PO 10 mg PO once Route: PO; ll1 16:18 Follow up: Response: No adverse reaction jb4 15:09 Drug: Ketorolac IVP 15 mg IVP once Route: IVP; Site: right antecubital; jb4 16:18 Follow up: Response: No adverse reaction jb4 16:33 Drug: NS 0.9% IV 1000 ml IV at 1000 ml once; to be given as a bolus over 60 minutes jb4 Route: IV; Rate: 1000 ml; Site: right antecubital; 16:33 Drug: Insulin Regular Human IVP 10 units IVP once {Co-Signature: ll1 (Arminda Ribeiro RN).} Route: IVP; Site: right antecubital; Medication: 15:12 VIS not applicable for this client. jb4 Outcome: 17:23 Discharge ordered by . kb 17:40 Discharged to home ambulatory, jb4 17:40 Condition: stable 17:40 Discharge instructions given to patient, Instructed on discharge instructions, follow up and referral plans. no drinking with medication, no driving heavy equipment, medication usage, Demonstrated understanding of instructions, follow-up care, medications, Prescriptions given X 1, 17:45 Patient left the ED. jb4 Signatures: Dorota Severino, LAI-C LAI-David Rhodes RN RN jb4 Arminda Ribeiro RN RN ll1 Avis Billingsley DIANA, RN RN dd2 Jovanna Banegas ts3 Quintin, Lynsay RN ll1
[2025-08-21 18:03] VITALS: TEMP 98.4; O2SAT 98
[2025-08-21 18:05] VITALS: BP 109/59
== END 2025-08-21 17:45 | disposition home or self-care (01) ==
LOC: ER 14:07
DX: M62.838 Other muscle spasm (principal); G62.9 Polyneuropathy, unspecified; E11.65 Type 2 diabetes mellitus with hyperglycemia
CPT/HCPCS: 36415; 80048; 82947; 83735; 96374; 96375; 99284; J1815; J1885; J7030